=== PATIENT | male | born 1955 | race Caucasian/White ===

== ENCOUNTER → 2023-12-17 14:04 | Outpatient (BNVA) | payer OTHER, SELFPAY | PROVIDERS: Visit Provider Thoracic Surgery (Cardiothoracic Vascular Surgery) | DX: I96 Gangrene, not elsewhere classified (principal); L97.821 Non-pressure chronic ulcer of other part of left lower leg limited to breakdown of skin | CPT/HCPCS: 97597; 97598; 99213 ==

== ENCOUNTER → 2023-12-31 10:48 | Outpatient (BNVA) | payer OTHER, SELFPAY | PROVIDERS: Visit Provider Thoracic Surgery (Cardiothoracic Vascular Surgery) | DX: I96 Gangrene, not elsewhere classified (principal); L97.821 Non-pressure chronic ulcer of other part of left lower leg limited to breakdown of skin | CPT/HCPCS: 97597; 97598 ==

== ENCOUNTER → 2024-01-07 10:36 | Outpatient (BNVA) | payer OTHER, SELFPAY | PROVIDERS: Visit Provider Thoracic Surgery (Cardiothoracic Vascular Surgery) | DX: I96 Gangrene, not elsewhere classified (principal); L97.821 Non-pressure chronic ulcer of other part of left lower leg limited to breakdown of skin | CPT/HCPCS: 97597; 97598 ==

== ENCOUNTER → 2024-01-14 10:28 | Outpatient (BNVA) | payer OTHER, SELFPAY | PROVIDERS: Visit Provider Thoracic Surgery (Cardiothoracic Vascular Surgery) | DX: I96 Gangrene, not elsewhere classified (principal); L97.821 Non-pressure chronic ulcer of other part of left lower leg limited to breakdown of skin | CPT/HCPCS: 97597 ==

== ENCOUNTER → 2024-01-21 07:54 | Outpatient (BNVA) | payer OTHER, SELFPAY | PROVIDERS: Visit Provider Thoracic Surgery (Cardiothoracic Vascular Surgery) | DX: I96 Gangrene, not elsewhere classified (principal); L97.821 Non-pressure chronic ulcer of other part of left lower leg limited to breakdown of skin | CPT/HCPCS: 97597; 97598; A6253 ==

== ENCOUNTER → 2024-01-28 09:42 | Outpatient (BNVA) | payer OTHER, SELFPAY | PROVIDERS: Visit Provider Thoracic Surgery (Cardiothoracic Vascular Surgery) | DX: L97.821 Non-pressure chronic ulcer of other part of left lower leg limited to breakdown of skin (principal) | CPT/HCPCS: 97597; 97598 ==

== ENCOUNTER → 2024-02-11 09:00 | Outpatient (BNVA) | payer OTHER, SELFPAY | PROVIDERS: Visit Provider Thoracic Surgery (Cardiothoracic Vascular Surgery) | DX: L89.893 Pressure ulcer of other site, stage 3 (principal) | CPT/HCPCS: 97597; 97598 ==

== ENCOUNTER 2024-02-18 06:00 | Outpatient (CLI) | payer OTHER, SELFPAY | END 2024-02-18 06:01 | disposition home or self-care (01) | LOC: RAD 02-21 11:49 | PROVIDERS: Visit Provider Thoracic Surgery (Cardiothoracic Vascular Surgery) | DX: S81.802A Unspecified open wound, left lower leg, initial encounter (principal); R52 Pain, unspecified; I50.9 Heart failure, unspecified; I96 Gangrene, not elsewhere classified; L89.893 Pressure ulcer of other site, stage 3 | CPT/HCPCS: 97597; 97598 ==

== ENCOUNTER → 2024-02-25 08:41 | Outpatient (BNVA) | payer OTHER, SELFPAY | PROVIDERS: Visit Provider Thoracic Surgery (Cardiothoracic Vascular Surgery) | DX: I96 Gangrene, not elsewhere classified (principal); L89.893 Pressure ulcer of other site, stage 3 | CPT/HCPCS: 97597; 97598 ==

== ENCOUNTER → 2024-03-03 08:38 | Outpatient (BNVA) | payer OTHER, SELFPAY | PROVIDERS: Visit Provider Thoracic Surgery (Cardiothoracic Vascular Surgery) | DX: Z09 Encounter for follow-up examination after completed treatment for conditions other than malignant neoplasm (principal); Z87.2 Personal history of diseases of the skin and subcutaneous tissue | CPT/HCPCS: 99212 ==

== ENCOUNTER → 2024-03-10 15:45 | Outpatient (BNVA) | payer OTHER, SELFPAY | PROVIDERS: Visit Provider Internal Medicine Cardiovascular Disease | DX: R07.9 Chest pain, unspecified (principal); I25.5 Ischemic cardiomyopathy; I50.9 Heart failure, unspecified | CPT/HCPCS: 99204 ==

== ENCOUNTER 2024-03-13 09:11 | Outpatient (CLI) | payer OTHER, SELFPAY ==
--- NOTE | 2024-03-13 09:15 | USCV_ITS ---
Bijan Paredes Age: 69 Gender: M : 1955 Exam Date: 03/13/2024 09:24 Ordering Phys: Marcos Israel MD (Andy) ([email or web address]) Technologist: CT Exam Location: [facility] – [place] Indication: HISTORY: PROCEDURES: FINDINGS: Duplex examination was performed on the left side. The deep veins on the left side were identified interrogated. These veins were found to be easily compressible with the spontaneous blood flow. No significant insufficiency were noted. The superficial veins were identified and related. Significant insufficiency with venous reflux of greater than 500 ms were noted throughout the greater saphenous vein. The reflux times where 0.7, 0.8, 0.6, 3.9 and 3.6 seconds at the greater saphenous vein distal to saphenofemoral junction, proximal, mid, distal and below-knee segments of the greater saphenous vein respectively. These venous segments were measuring anywhere from 0.5 to 0.8 cm in diameter. Except for the greater saphenous vein distal saphenofemoral junction and the proximal segment of the greater saphenous vein, all other segments were found to be very superficial. No significant venous reflux was noted in the small saphenous vein. CONCLUSIONS 1. No evidence of DVT or deep vein reflux 2. Significant venous reflux of greater than 500 ms were noted throughout the greater saphenous vein segments on the left side. But except for the saphenofemoral greater saphenous vein segments distal to the saphenofemoral junction and proximal greater saphenous vein segment, all other segments were very superficial. 3. The reflux time, venous diameter and depth from the surface are as mentioned above Dr Farideh Lizama MD [facility] (Electronically Signed) Final Date: 14 March 2024 15:11 S
== END 2024-03-13 09:12 | disposition home or self-care (01) ==
LOC: RAD 09:12
PROVIDERS: Visit Provider Thoracic Surgery (Cardiothoracic Vascular Surgery)
DX: I83.812 Varicose veins of left lower extremity with pain (principal); I50.9 Heart failure, unspecified; S81.802A Unspecified open wound, left lower leg, initial encounter; X58.XXXA Exposure to other specified factors, initial encounter
CPT/HCPCS: 93971

== ENCOUNTER 2024-03-31 09:30 | Outpatient (CLI) | payer OTHER, SELFPAY ==
[2024-03-31 09:40] VITALS: BMI 28.5
--- NOTE | 2024-03-31 09:40 | ECG_ITS ---
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
--- NOTE | 2024-03-31 09:41 | NMCV_ITS ---
NM emir perf SPECT r/s* [id number] Bijan Paredes Age: 69 Gender: M : 1955 Exam Date: 03/31/2024 09:41 Ordering Phys: Amando Andrade MD ([email or web address]) Technologist: LEONARDO Joshua Exam Location: [facility] Indications: CP STRESS TEST Please see separate stress test report in [facility] for full findings IMAGE PROTOCOL Rest/Stress 1 Lexiscan Day Radiopharmaceutical Dose (mCi) Administration Site Administered by Rest: Tc-99m 11 IV Sinai Boo, TALENT DEVELOPMENT COORDINATOR Sestamibi Stress:Tc-99m 32.9 IV Sinai Boo, TALENT DEVELOPMENT COORDINATOR Sestamibi Rest: 31-Mar-2024 60 Discovery 630 Stress: 31-Mar-2024 30 Discovery 630 0.4mg Lexiscan. Images obtained in supine and prone position. SPECT RESULTS Technical Quality: Good Raw Data Analysis: Normal Image Corrections: No attenuation or motion correction applied Summed Stress Score: 27 Summed Rest Score: 29 Summed Difference Score: 0 PERFUSION FINDINGS Large area of fixed perfusion defect noted from basal to mid anterior anteroseptal, basal to distal lateral and basal to distal inferior wall on both rest and stress images suggestive of old myocardial infarction versus scarring. No danish-infarct ischemia noted. FUNCTIONAL RESULTS (calculated via Gated SPECT) Stress Image LV EF (%): 47 Stress EDV (mL):150 TID: 0.85 Stress ESV (mL):79 FUNCTIONAL FINDINGS: Moderate depressed left ventricular ejection fraction there appeared to be inferior and lateral wall akinesis IMPRESSIONS Large area of old myocardial infarction versus scarring noted in basal to mid anterior anterolateral, lateral and inferior wall without danish-infarct ischemia. This study is negative for ischemia. EKG segment will be documented separately. Amando Andrade MD (Electronically Signed) Final Date: 31 March 2024 18:33 S
[2024-03-31] MEDS: regadenoson 0.4 Mg/5 ml Syringe IVP (11:14)
[2024-03-31] MEDS: aminophylline 25 mg/mL SDV 20 mL IVP (11:35)
--- NOTE | 2024-03-31 11:46 | ECG_ITS ---
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
[2024-03-31 11:57] VITALS: BP 92/63; PULSE 68
== END 2024-03-31 09:31 | disposition home or self-care (01) ==
PROVIDERS: PCP Family Medicine; Visit Provider Internal Medicine Cardiovascular Disease
DX: I44.0 Atrioventricular block, first degree (principal); I44.7 Left bundle-branch block, unspecified; R07.9 Chest pain, unspecified; R06.02 Shortness of breath
CPT/HCPCS: 36415; 78452; 93005; 93017; 96374; A9500; J0280; J2785

== ENCOUNTER → 2024-04-08 10:34 | Outpatient (BNVA) | payer OTHER, SELFPAY | PROVIDERS: PCP Family Medicine; Visit Provider Specialist | DX: M25.551 Pain in right hip (principal); M25.552 Pain in left hip; M70.61 Trochanteric bursitis, right hip; M70.62 Trochanteric bursitis, left hip | CPT/HCPCS: 73523; 99204 ==

== ENCOUNTER → 2024-04-21 10:00 | Outpatient (BNVA) | payer OTHER, SELFPAY | PROVIDERS: PCP Family Medicine; Visit Provider Nurse Practitioner Family | DX: I48.0 Paroxysmal atrial fibrillation (principal); I25.5 Ischemic cardiomyopathy; I50.9 Heart failure, unspecified; Z95.0 Presence of cardiac pacemaker | CPT/HCPCS: 99214 ==

== ENCOUNTER 2024-06-17 11:50 | Outpatient (CLI) | payer OTHER, SELFPAY ==
--- NOTE | 2024-06-17 11:53 | USCV_ITS ---
Bijan Paredes Age: 69 Gender: M : 1955 Exam Date: 06/17/2024 12:06 Ordering Phys: Amando Andrade MD ([email or web address]) Technologist: CT Exam Location: [facility] – [place] Indication: cp BP: / HR: Rhythm: Sinus Technical Quality: Adequate MEASUREMENTS (Male / Female) Normal Values FINDINGS Left Ventricle Mildly increased left ventricular cavity size. SeverelyGrade I/IV diastolic dysfunction (abnormal relaxation filling pattern), normal to mildly elevated filling pressures. decreased left ventricular systolic function. Left ventricular ejection fraction is estimated at 35 %. Global left ventricular hypokinesis. Right Ventricle Catheter/pacemaker wire visualized in the right ventricle. Right Atrium The right atrium is normal in size. Left Atrium Moderately increased left atrial size. Mitral Valve Mildly thickened mitral valve. No mitral valve stenosis. Mild mitral valve regurgitation. Aortic Valve Moderate aortic valve calcification. No aortic valve stenosis. Trace aortic valve regurgitation. Tricuspid Valve Structurally normal tricuspid valve without significant stenosis or regurgitation. Pulmonary artery systolic pressure is normal. Pulmonic Valve Structurally normal pulmonic valve without significant stenosis. There is no pulmonic regurgitation. Pericardium Normal pericardium without effusion. Aorta Normal ascending aorta dimension. IVC Inferior vena cava not visualized. CONCLUSIONS Mildly increased left ventricular cavity size. SeverelyGrade I/IV diastolic dysfunction (abnormal relaxation filling pattern), normal to mildly elevated filling pressures. decreased left ventricular systolic function. Left ventricular ejection fraction is estimated at 35 %. Global left ventricular hypokinesis. Moderately increased left atrial size. Catheter/pacemaker wire visualized in the right ventricle. There is no pericardial effusion. Amando Andrade MD (Electronically Signed) Final Date: 22 June 2024 03:17 S
[2024-06-17] MEDS: perflutren protein-a microsphr 0.22 mg/mL SDV 3 mL IV (12:50)
== END 2024-06-17 11:51 | disposition home or self-care (01) ==
LOC: RAD 11:51
PROVIDERS: PCP Family Medicine; Visit Provider Nurse Practitioner Family
DX: R06.02 Shortness of breath (principal); R93.1 Abnormal findings on diagnostic imaging of heart and coronary circulation; I51.7 Cardiomegaly; I34.0 Nonrheumatic mitral (valve) insufficiency; I35.8 Other nonrheumatic aortic valve disorders
CPT/HCPCS: C8929

== ENCOUNTER 2024-06-17 13:11 | Emergency (ER) | payer OTHER, MEDICARE, SELFPAY ==
[2024-06-17 13:24] VITALS: BP 116/72; PULSE 61; RESP 16; TEMP 36.3; O2SAT 96; BMI 27.1
--- NOTE | 2024-06-17 13:33 | W.ED.BACK ---
HPI - Back Pain/Injury General: Chief Complaint: Back Pain/Injury Stated Complaint: lower back pain/weakness Time Seen by Provider: 06/17/24 13:31 Source: patient Mode of arrival: ambulatory Limitations: no limitations History of Present Illness: Patient is a 69-year-old male who presents to the emergency department complaining of severe lumbar pain occurring suddenly within the last 24 hours. Notes a history of back surgery where he is currently having pain. Does note that he has been on prednisone chronically since last summer to do some issues with his left lower extremity. He is diabetic also reports a history of neuropathy, states that he has dealt with issues with his left lower extremity with this but he states that with onset of pain his right leg is now been giving out on him. Does not report any fevers, trauma, unexplained weight loss, IVDU, or history of cancer. He does not report any bowel or bladder incontinence. Has not taken anything for pain. Pain reported to radiate across the left lower back and right lower back. MD elicited complaint: back pain Onset (ago): hour(s) Timing: constant Severity: severe Pain scale (0-10): 10 Similar Symptoms Previously: Yes Location: lumbar spine Radiation: right upper leg Exacerbating factors: movement Relieving factors: immobilization Associated symptoms: Reports difficulty walking; Deny abdominal pain, fecal incontinence, fever(s) or syncope Related Data Home Medications Medication Instructions Recorded Confirmed amiodarone 200 mg tablet 200 mg PO DAILY 03/10/24 06/17/24 apixaban 5 mg tablet (Eliquis) 5 mg PO BID 03/10/24 06/17/24 aspirin 81 mg tablet,delayed 81 mg PO DAILY 03/10/24 06/17/24 release (Adult Aspirin Regimen) cholecalciferol (vitamin D3) 25 25 mcg PO DAILY 03/10/24 06/17/24 mcg (1,000 unit) capsule cyanocobalamin (vitamin B-12) 1,000 mcg PO DAILY 03/10/24 06/17/24 1,000 mcg capsule empagliflozin 10 mg tablet 10 mg PO DAILY 03/10/24 06/17/24 fexofenadine 180 mg tablet 180 mg PO DAILY 03/10/24 06/17/24 (Allergy Relief (fexofenadine)) furosemide 80 mg tablet 80 mg PO QAM 03/10/24 06/17/24 gabapentin 600 mg tablet 600 mg PO TID 03/10/24 06/17/24 isosorbide dinitrate 5 mg tablet 5 mg PO BID 03/10/24 06/17/24 metformin 500 mg tablet 2,000 mg PO DAILY 03/10/24 06/17/24 multivitamin 1 tab PO DAILY 03/10/24 06/17/24 omeprazole 20 mg capsule,delayed 20 mg PO QAM 03/10/24 06/17/24 release prednisone 20 mg tablet 20 mg PO DAILY 03/10/24 06/17/24 spironolactone 25 mg tablet 25 mg PO DAILY 03/10/24 06/17/24 vitamin E mixed 1,000 unit capsule 1,000 unit PO DAILY 03/10/24 06/17/24 zolpidem 5 mg tablet (Ambien) 5 mg PO BEDTIME 03/10/24 06/17/24 metoprolol succinate 50 mg 25 mg PO QAM 04/21/24 06/17/24 tablet,extended release 24 hr sacubitril 49 mg-valsartan 51 mg 0.5 tab PO BID 04/21/24 06/17/24 tablet (Entresto) atorvastatin 40 mg tablet 20 mg PO QPM 06/17/24 06/17/24 dofetilide 250 mcg capsule 250 mcg PO Q12H 06/17/24 06/17/24 (Tikosyn) epinephrine 0.3 mg/0.3 mL 0.3 mg IM ONCE PRN Allergic 06/17/24 06/17/24 injection, auto-injector Reaction nitroglycerin 0.4 mg sublingual 0.4 mg sublingual Q5M PRN Chest 06/17/24 06/17/24 tablet (Nitrostat) Pain Previous Rx's Medication Instructions Recorded hydrocodone 5 mg-acetaminophen 325 1 tab PO Q8H PRN pain #14 tabs 06/17/24 mg tablet polyethylene glycol 3350 17 17 g PO DAILY #510 grams 06/17/24 gram/dose oral powder (Miralax) Allergies Allergy/AdvReac Type Severity Reaction Status Date / Time silver nitrate Allergy Unknown Verified 06/17/24 13:29 bee stings Allergy Intermediate ADR-Itching Uncoded 06/17/24 13:29 mercury Allergy Intermediate swelling Uncoded 06/17/24 13:29 Review of Systems General: Reports: 10 or more systems reviewed and unremarkable except in HPI and below Const: Reports: other (denies trauma); Denies: fever(s), change in weight or night sweats Card: Denies: chest pain, lightheadedness or syncope Resp: Denies: dyspnea GI: Denies: abdominal pain or fecal incontinence : Denies: urinary incontinence Musc: Reports: back pain and extremity pain; Denies: neck pain Skin/Breast: Denies: rash or skin pain Neuro: Reports: numbness in extremities, weakness in extremities and difficulty walking; Denies: headache(s), sensory changes, lack of coordination, frequent falls or involuntary movements PFSH ED PFSH: Medical History CHF (congestive heart failure), NYHA class III Ischemic cardiomyopathy Hypertension after donor nephrectomy requiring medication CHF (congestive heart failure) Ischemic cardiomyopathy Social History Smoking and tobacco/nicotine status: former use of tobacco/nicotine Physical Exam Const: COMMON NORMALS: no acute distress, patient oriented x3, no limitations, healthy appearing and alert Resp: COMMON NORMALS: normal respiratory effort, No retractions, No use of accessory muscles and clear to auscultation bilaterally AUSCULTATION: clear to auscultation bilaterally Cardio: COMMON NORMALS: regular rate, regular rhythm, S1 normal heart sound present and S2 normal heart sound present RATE: regular rate RHYTHM: regular rhythm HEART SOUNDS: S1 normal heart sound present and S2 normal heart sound present Back/Pelvis: OTHER: Postoperative scar to lumbar spine. Reproducible tenderness to palpation over the lumbar spine as well as to the bilateral paralumbar muscles. Range of motion limited secondary to pain. SLR positive on the right, RLE weakness endorsed with flexion at the right hip. Reporting diminished sensations to the right lower leg. Extremity: COMMON NORMALS: normal to inspection and full ROM Neuro: COMMON NORMALS: patient oriented x3, moves all extremities, no focal motor deficits and deep tendon reflexes 2+ bilaterally SENSORIUM/ORIENTATION: Yes alert OTHER: Cane required for gait assistance. L3, L4, L5, and S1 nerve sensations intact. Normal knee jerk and ankle jerk reflexes. Skin: COMMON NORMALS: no rashes or lesions noted GENERAL SKIN EXAM: no rashes or lesions noted Course Vital Signs: Vital signs: Vital Signs Temperature 97.4 F L 06/17/24 13:24 Pulse Rate 60 06/17/24 14:18 Respiratory Rate 16 06/17/24 13:24 Blood Pressure 120/75 06/17/24 14:18 Pulse Oximetry 97 06/17/24 14:18 Oxygen Delivery Me thod Room Air 06/17/24 14:18 MDM - Back Pain/Injury Medical Decision Making Patient has history of lumbar surgery, presented with lumbar spinal pain radiating across left and right back. There was some numbness sensation endorsed on the right lower extremity and straight leg raise testing positive on the right. Reproducible tenderness to palpation to the back as well. CT showing mild acute compression fracture and chronic stenosis with decompressive findings. I got in touch with Dr. Crouch, who will see the patient in office and we will treat patient's pain at home with Julianne. Discussed plan with patient, upon recheck he was sleeping comfortably stating his pain got much better. Serial neurological examination did not demonstrate any acute worsening. He will follow-up as planned with general return precautions given. Labs Radiology Impressions Lumbar Spine CT 06/17/24 13:50 IMPRESSION: 1. Mild acute compression RIGHT superior endplate L4 with minimal loss of vertebral body height approximate 20%. No retropulsion. Fracture through the anterior bridging osteophytes at this level. Fracture has an acute appearance. 2. Severe central canal stenosis L2-3 due to disc bulge with facet arthropathy and ligamentum flavum hypertrophy. 3. Spinal canal has been decompressed at L3-L5 with wide decompressive laminectomies L3-L4 and L4-L5. 4. Disc osteophyte protrusion L5-S1 impinges the traversing RIGHT S1 nerve root in the subarticular recess. 5. Mild fusiform abdominal aortic aneurysm measuring 3.1 x 2.7 x 8.7 cm AP by transverse by craniocaudal. No prior comparisons. This could be followed up with CTA or ultrasound on an elective basis Notified Dr Tian at 06/17/2024 2:50 PM. All radiology interpretation(s) finalized by discharge Discharge Plan Discharge Patient Disposition: Home Clinical Impression: Compression fracture of L3 vertebra Qualifiers: Encounter type: initial encounter Qualified Code(s): S32.030A - Wedge compression fracture of third lumbar vertebra, initial encounter for closed fracture Spinal stenosis Qualifiers: Spinal region: lumbar Neurogenic claudication status: unspecified Qualified Code(s): M48.061 - Spinal stenosis, lumbar region without neurogenic claudication Condition: Stable Prescriptions: New hydrocodone-acetaminophen 5-325 mg tablet 1 tab PO Q8H PRN (Reason: pain) Qty: 14 0RF Rx Instructions: Take 1/2 to 1 tab every 8 hours as needed for pain polyethylene glycol 3350 [Miralax] 17 gram/dose powder 17 g PO DAILY Qty: 510 0RF Rx Instructions: Take 1 scoop daily while taking pain medications. No Action Entresto 49-51 mg tablet 0.5 tab PO BID metoprolol succinate 50 mg tablet extended release 24 hr 25 mg PO QAM empagliflozin 10 mg tablet 10 mg PO DAILY omeprazole 20 mg capsule,delayed release(DR/EC) 20 mg PO QAM prednisone 20 mg tablet 20 mg PO DAILY metformin 500 mg tablet 2,000 mg PO DAILY aspirin [Adult Aspirin Regimen] 81 mg tablet,delayed release (DR/EC) 81 mg PO DAILY cholecalciferol (vitamin D3) 25 mcg (1,000 unit) capsule 25 mcg PO DAILY cyanocobalamin (vitamin B-12) 1,000 mcg capsule 1,000 mcg PO DAILY fexofenadine [Allergy Relief (fexofenadine)] 180 mg tablet 180 mg PO DAILY furosemide 80 mg tablet 80 mg PO QAM gabapentin 600 mg tablet 600 mg PO TID multivitamin Tablet 1 tab PO DAILY spironolactone 25 mg tablet 25 mg PO DAILY isosorbide dinitrate 5 mg tablet 5 mg PO BID Rx Instructions: allow nitrate-free interval of 12-14 hrs per 24-hr period amiodarone 200 mg tablet 200 mg PO DAILY Eliquis 5 mg tablet 5 mg PO BID vitamin E mixed 1,000 unit capsule 1,000 unit PO DAILY zolpidem [Ambien] 5 mg tablet 5 mg PO BEDTIME atorvastatin 40 mg Tablet 20 mg PO QPM dofetilide [Tikosyn] 250 mcg Capsule 250 mcg PO Q12H nitroglycerin [Nitrostat] 0.4 mg Tablet, Sublingual 0.4 mg SUBLINGUAL Q5M PRN (Reason: Chest Pain) Rx Instructions: do not exceed 3 doses per episode epinephrine [Epi E-Z Pen] 0.3 mg/0.3 mL Auto-Injector 0.3 mg IM ONCE PRN (Reason: Allergic Reaction) Rx Instructions: for 2 doses Discharge Orders: Discharge ED (Routine); Ordered 06/17/24 Ordered By: Jeffrey Gagnon Referrals: Andrew Crouch DO [Physician] - 7-10 days (Please call for an appointment with orthopedics or with your primary if pain persists.) Manasa Paul MD [Primary Care Provider] - Patient Instructions: Vertebral Compression Fracture (ED), Lumbar Spinal Stenosis (ED) Activity Restrictions/Additional Instructions: Pain medications as prescribed. Follow-up with orthopedic/spine as discussed. Return with any new or worsening. Please see attached patient instructions for further education. Coding Level of Care Code ED Leather Belt Maker for July Issa
--- NOTE | 2024-06-17 13:50 | CT_ITS ---
WS: [id number] CT LUMBAR SPINE TECHNIQUE: Noncontrast CT of the lumbar spine with coronal and sagittal reformatted images. CLINICAL INFORMATION: severe low back pain, difficulty walking, hx of lumbar surge COMPARISON: None. DLP: 801.[address] scans at [facility] use at least one of these dose optimization techniques: automated e xposure control; mA and/or kV adjustment per patient size (includes targeted exams where dose is matc hed to clinical indication); or iterative reconstruction. FINDINGS: Mild lumbar curve. No acute compression. Prior postoperative changes laminectomy L3-L4 and L4-L5. Sli ght anterolisthesis L3 on L4. Ectatic mild fusiform dilatation infrarenal abdominal aorta measuring 3.1 x 2.7 x 8.4 cm AP by transv erse by craniocaudal Mild acute appearing compression superior endplate L4 with visualized fracture cleft and mild danae lesa. Fracture through the anterior bridging osteophyte. Minimal approximate 20% loss of vertebral jerrod dy height. No significant retropulsion. This has an acute appearance. L1-L2: Slight narrowing LEFT subarticular recess. Mild facet arthropathy. L2-L3: Mild annular bulging. Small central protrusion. Chronic appearing severe central canal stenosi s with facet arthropathy and ligamentum flavum hypertrophy. Moderate bilateral foraminal narrowing. L3-L4: Grade 1 anterolisthesis. Mild annular bulging. Prior laminectomy defects. Moderate bilateral f oraminal narrowing. L4-L5: Mild annular bulging. Laminectomy defects. Moderate facet arthropathy. Mild bilateral foramina l narrowing. L5-S1: RIGHT paracentral disc osteophyte protrusion impinges the RIGHT S1 nerve root. Mild central ca nal stenosis. Mild facet arthropathy. Mild LEFT foraminal narrowing. Visualized pelvic bony structures: Normal. Paravertebral soft tissues: Normal. Adrenal glands are normal. Small bilateral renal cysts. LEFT basilar atelectasis. CT/CT lumbar spine wo con* [id number] IMPRESSION: 1. Mild acute compression RIGHT superior endplate L4 with minimal loss of vert ebral body height approximate 20%. No retropulsion. Fracture through the anteri or bridging osteophytes at this level. Fracture has an acute appearance. 2. Severe central canal stenosis L2-3 due to disc bulge with facet arthropathy and ligamentum flavum hypertrophy. 3. Spinal canal has been decompressed at L3-L5 with wide decompressive laminec tomies L3-L4 and L4-L5. 4. Disc osteophyte protrusion L5-S1 impinges the traversing RIGHT S1 nerve june t in the subarticular recess. 5. Mild fusiform abdominal aortic aneurysm measuring 3.1 x 2.7 x 8.7 cm AP by transverse by craniocaudal. No prior comparisons. This could be followed up wit h CTA or ultrasound on an elective basis Notified Dr Tian at 06/17/2024 2:50 PM.
[2024-06-17] MEDS: ketorolac 60 mg/2 mL INJ IM (14:14)
[2024-06-17] MEDS: orphenadrine 30 mg/mL Inj 2 mL 60 MG IM (14:16)
[2024-06-17 14:18] VITALS: BP 120/75; PULSE 60; O2SAT 97
--- NOTE | 2024-06-17 14:35 | PC.PHAR ---
Pt has 5 medications not on his [facility] med list yet: Amiodarone 200mg daily, Metformin 500mg 2000mg daily, Prednisone 20mg,Vitamin e 1000 daily, and Zolpidem 5 mg hs.
[2024-06-17 15:24] VITALS: BP 112/68; PULSE 61; O2SAT 97
--- NOTE | 2024-06-19 00:04 | DCPLANNER ---
Message sent to Ortho /Spine Dr Crouch
== END 2024-06-17 15:26 | disposition home or self-care (01) ==
PROVIDERS: Emergency Provider Physician Assistant; PCP Family Medicine
DX: S32.030A Wedge compression fracture of third lumbar vertebra, initial encounter for closed fracture (principal); M48.061 Spinal stenosis, lumbar region without neurogenic claudication; Z79.84 Long term (current) use of oral hypoglycemic drugs; Z79.82 Long term (current) use of aspirin; Z79.01 Long term (current) use of anticoagulants; Z87.891 Personal history of nicotine dependence; I11.0 Hypertensive heart disease with heart failure; I50.9 Heart failure, unspecified; X58.XXXA Exposure to other specified factors, initial encounter
CPT/HCPCS: 72131; 96372; 99284; J1885; J2360

== ENCOUNTER → 2024-07-02 15:00 | Outpatient (BNVA) | payer OTHER, SELFPAY | PROVIDERS: PCP Family Medicine; Visit Provider Orthopaedic Surgery | DX: S32.040A Wedge compression fracture of fourth lumbar vertebra, initial encounter for closed fracture (principal); X58.XXXA Exposure to other specified factors, initial encounter | CPT/HCPCS: 36415; 72100; 80053; 81001; 85025; 99204 ==

== ENCOUNTER → 2024-07-17 09:21 | Outpatient (BNVA) | payer OTHER, SELFPAY | PROVIDERS: PCP Family Medicine; Visit Provider Internal Medicine | DX: Z01.818 Encounter for other preprocedural examination (principal); I25.5 Ischemic cardiomyopathy | CPT/HCPCS: 99214 ==

== ENCOUNTER 2024-07-29 07:00 | Day surgery (SDC) | payer OTHER, SELFPAY ==
[2024-07-29] VITALS (10 sets, daily range): BP systolic 130–159; BP diastolic 78–99; PULSE 70–95; RESP 16–18; TEMP 36.1–36.7; O2SAT 92–98; BMI 27.1
--- NOTE | 2024-07-29 07:03 | SC_ITS ---
WS: [id number] C ARM fluoroscopy for lumbar kyphoplasty, 07/29/2024 Clinical Data: Surgery Comparison: Lumbar spine, 07/02/2024 Findings: Dr. Crouch performed a lumbar kyphoplasty on L4. SC/C-arm FL for Kyphoplasty Impression: Lumbar kyphoplasty.
[2024-07-29] MEDS: sodium chloride 0.9% 1,000 ML 30 ML IV (07:34)
[2024-07-29 07:36] LABS: Glucose Point of Care 97 mg/dL (70-110)
--- NOTE | 2024-07-29 07:38 | ANES.PREANE2 ---
Pre-Anesthetic Assessment Height/Weight: Height 1.83 m Weight 90.718 kg Temp Pulse Resp BP Pulse Ox O2 Del Method 98.1 F 95 18 133/99 96 Room Air 07/29/24 07:19 07/29/24 07:19 07/29/24 07:19 07/29/24 07:19 07/29/24 07:19 07/29/24 07:19 Preop Diagnosis: L4 traumatic osteoporotic wedge compression fracture Operation Date: 07/29/24 08:25 Proposed Procedures p Kyphoplasty(Not Applicable) - Andrew Crouch DO Familial anesthetic complications: None Was Beta Ricardo taken within 24 hours: Yes Was Clonidine taken within 24 hours: N/A Last intake: Intake Last Liquid Date 07/28/24 Last Liquid Time 23:30 Last Solid Date 07/28/24 Last Solid Time 18:00 Social No alcohol and No tobacco Exam alert, oriented x 3, clear to auscultation bilaterally and regular rate & rhythm Airway Mallampati: Class II Dentition: false CV/HEM Atrial Fibrillation, Coronary Artery Disease (stent), Congestive Heart Failure (Grade I diastolic dysfunction w/ EF of 35% and global hypokinesis) and Hypertension pacemaker w/ ICD (AAI mode) Ischemic cardiomyopathy Anesthetic Plan ASA status: 4 Anesthesia: General Risk of > 500 ml blood loss (7ml/kg in children): No Medications/Allergies Home Medications ?Medication ?Instructions ?Recorded ?Confirmed ?Last Taken ?Type amiodarone 200 mg tablet 200 mg PO DAILY 03/10/24 07/29/24 07/29/24 History apixaban 5 mg tablet (Eliquis) 5 mg PO BID 03/10/24 07/28/24 07/27/24 History aspirin 81 mg tablet,delayed 81 mg PO DAILY 03/10/24 07/28/24 07/27/24 History release (Adult Aspirin Regimen) cholecalciferol (vitamin D3) 25 25 mcg PO DAILY 03/10/24 07/28/24 07/27/24 History mcg (1,000 unit) capsule cyanocobalamin (vitamin B-12) 1,000 mcg PO DAILY 03/10/24 07/28/24 07/28/24 History 1,000 mcg capsule empagliflozin 10 mg tablet 10 mg PO DAILY 03/10/24 07/28/24 07/27/24 History (Jardiance) fexofenadine 180 mg tablet 180 mg PO DAILY 03/10/24 07/28/24 07/27/24 History (Allergy Relief (fexofenadine)) furosemide 80 mg tablet 80 mg PO QAM 03/10/24 07/28/24 07/27/24 History gabapentin 600 mg tablet 600 mg PO TID 03/10/24 07/28/24 07/27/24 History isosorbide dinitrate 5 mg tablet 5 mg PO BID 03/10/24 07/28/24 07/27/24 History metformin 500 mg tablet 2,000 mg PO DAILY 03/10/24 07/28/24 07/27/24 History multivitamin 1 tab PO DAILY 03/10/24 07/28/24 07/27/24 History omeprazole 20 mg capsule,delayed 20 mg PO QAM 03/10/24 07/29/24 07/29/24 History release prednisone 20 mg tablet 20 mg PO DAILY 03/10/24 07/28/24 07/27/24 History spironolactone 25 mg tablet 25 mg PO DAILY 03/10/24 07/28/24 07/28/24 History vitamin E mixed 1,000 unit capsule 1,000 unit PO DAILY 03/10/24 07/28/24 07/27/24 History zolpidem 5 mg tablet (Ambien) 5 mg PO BEDTIME 03/10/24 07/28/24 07/27/24 History metoprolol succinate 50 mg 25 mg PO QAM 04/21/24 07/29/24 07/29/24 History tablet,extended release 24 hr sacubitril 49 mg-valsartan 51 mg 0.5 tab PO BID 04/21/24 07/28/24 07/27/24 History tablet (Entresto) atorvastatin 40 mg tablet 20 mg PO QPM 06/17/24 07/28/24 07/27/24 History epinephrine 0.3 mg/0.3 mL 0.3 mg IM ONCE PRN Allergic 06/17/24 07/28/24 Unknown History injection, auto-injector Reaction nitroglycerin 0.4 mg sublingual 0.4 mg sublingual Q5M PRN Chest 06/17/24 07/28/24 Unknown History tablet (Nitrostat) Pain polyethylene glycol 3350 17 17 g PO DAILY #510 grams 0107/28/24 07/28/24 Rx gram/dose oral powder (Miralax) oxycodone 10 mg tablet 10 mg PO Q8H PRN pain 7 days #21 07/20/24 07/29/24 07/29/24 Rx tabs Allergies Allergy/AdvReac Type Severity Reaction Status Date / Time Alpha-Gal Allergy ALGY-Difficulty Verified 07/29/24 07:08 (Rukqvcjuw-Ifdav-0,3-Gala Breathing silver nitrate Allergy Unknown Verified 07/29/24 07:08 bee stings Allergy Intermediate ADR-Itching Uncoded 07/29/24 07:08 mercury Allergy Intermediate swelling Uncoded 07/29/24 07:08 Current Medications Generic Name Dose Route Start Last Admin Trade Name Freq PRN Reason Stop Dose Admin Sodium Chloride 1,000 mls @ 30 mls/hr 07/29/24 07:30 07/29/24 07:34 Sodium Chloride 0.9% IV 07/30/24 07:29 30 mls/hr .Q24H SHRUTHI Administration PFSH Anesthesia Medical History CHF (congestive heart failure), NYHA class III Ischemic cardiomyopathy Hypertension 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
[2024-07-29 07:56] LABS: Anion Gap 13.7 (5-19); Blood Urea Nitrogen 16 mg/dL (8-23); Calcium 9.5 mg/dL (8.5-10.5); Carbon Dioxide 27 mmol/L (22-29); Chloride 103 mmol/L (98-107); Creatinine Clr Calc Pharmacy 89.4954; Glomerular Filtration Rate 83.4 mL/min (90-130); Glucose 115 mg/dL (65-115); Osmolality Calculated 292 mOsm/kg (285-295); Potassium 3.7 mmol/L (3.5-5.1); Sodium 140 mmol/L (136-145)
[2024-07-29] MEDS: ceFAZolin 2,000 mg SDV 2000 MG IVP (08:39)
--- NOTE | 2024-07-29 08:46 | W.PM.OPSUD ---
Surgery/Procedure H&P Update DATE OF PROCEDURE: July 29, 2024 DATE H&P PERFORMED: 07/02/24 H&P UPDATE INFORMATION: I have reviewed H&P completed within last 30 days, I have examined patient prior to procedure and No changes to prior documentation PREOP DIAGNOSIS: L4 traumatic osteoporotic wedge compression fracture PLANNED PROCEDURE: Operation Date: 07/29/24 08:25 Proposed Procedures p Kyphoplasty(Not Applicable) - Andrew Crouch DO
[2024-07-29] MEDS: lidocaine-epi 1% 20 mL INJ INJECTION (09:30)
--- NOTE | 2024-07-29 09:50 | PM.OP ---
Operative Report Date of procedure: July 29, 2024 Pre-op diagnosis: L4 wedge osteoporotic traumatic compression fracture Post-op diagnosis: same Procedure done: L4 kyphoplasty Surgeon: Andrew Crouch DO Estimated blood loss (mL): 5 Procedure: L4 kyphoplasty Patient brought to the operative suite after an Gonasi was placed in the prone position. All his impingement well-padded. Patient's prepped and draped normal sterile fashion. C-arm was brought in to get AP and lateral fluoroscopy biplanar fluoroscopy throughout the entire procedure. The skin incisions made over the right pedicle. The awl was inserted. The drill was inserted when the drill came back and had bone fragments on it and sent these for pathology. Next attension was brought to placing the balloon. The balloon was inflated and then deflated under C-arm guidance. Next the cement was injected. Had a good fill throughout the entire vertebral body. AP lateral fluoroscopy confirmed this. Wound was irrigated closed with nylon suture. Sterile dressings were applied patient transferred to the PACU in stable condition.
[2024-07-29] MEDS: oxyCODONE 5 mg IR Tab/Cap 10 MG PO (10:52)
--- NOTE | 2024-07-29 11:15 | ANE.PACU2 ---
Inpatient post-anesthesia follow up: Airway intact: Yes Vital signs: Temperature 97.1 F Pulse Rate 73 Respiratory Rate 16 Blood Pressure 135/79 Pulse Oximetry 92 Oxygen Delivery Me thod Room Air Oxygen Flow Rate Fraction of Inspir ed Oxygen Hydration adequate: Yes Pain level: 1 Mental status: Baseline
== END 2024-07-29 11:17 | disposition home or self-care (01) ==
PROVIDERS: Anesthesiology; PCP Family Medicine; Visit Provider Orthopaedic Surgery
PROC: (CPT 22514; principal; 2024-07-29 08:25)
DX: M80.08XA Age-related osteoporosis with current pathological fracture, vertebra(e), initial encounter for fracture (principal); I48.91 Unspecified atrial fibrillation; I25.10 Atherosclerotic heart disease of native coronary artery without angina pectoris; I11.0 Hypertensive heart disease with heart failure; I50.32 Chronic diastolic (congestive) heart failure; X58.XXXA Exposure to other specified factors, initial encounter; Z79.899 Other long term (current) drug therapy; Z79.01 Long term (current) use of anticoagulants; Z79.84 Long term (current) use of oral hypoglycemic drugs; Z79.82 Long term (current) use of aspirin; Z88.8 Allergy status to other drugs, medicaments and biological substances; Z87.891 Personal history of nicotine dependence; Z95.5 Presence of coronary angioplasty implant and graft; Z95.0 Presence of cardiac pacemaker; Z52.4 Kidney donor
CPT/HCPCS: 22514; 36415; 36416; 76000; 80048; 82962; 88307; 88311; J0690; J1100; J2405; J2704; J3010; J3490; J7030

== ENCOUNTER → 2024-08-13 14:28 | Outpatient (BNVA) | payer OTHER, SELFPAY | PROVIDERS: PCP Family Medicine; Visit Provider Orthopaedic Surgery | DX: M54.9 Dorsalgia, unspecified (principal); M25.559 Pain in unspecified hip; Z48.89 Encounter for other specified surgical aftercare | CPT/HCPCS: 99024 ==

== ENCOUNTER 2024-08-18 05:00 | Outpatient (RCR) | payer OTHER, SELFPAY | END 2024-09-16 23:59 | disposition home or self-care (01) | LOC: TPT 05:00 | PROVIDERS: Visit Provider Orthopaedic Surgery | DX: M54.9 Dorsalgia, unspecified (principal); M25.559 Pain in unspecified hip | CPT/HCPCS: 97110; 97116; 97161 ==

== ENCOUNTER 2024-09-17 05:00 | Outpatient (RCR) | payer OTHER, MEDICARE, SELFPAY | END 2024-10-17 23:59 | disposition home or self-care (01) | LOC: TPT 05:00 | PROVIDERS: PCP Nurse Practitioner Family; Visit Provider Orthopaedic Surgery | DX: M54.9 Dorsalgia, unspecified (principal); M25.559 Pain in unspecified hip | CPT/HCPCS: 97110; 97116 ==

== ENCOUNTER 2024-10-05 10:56 | Emergency (ER) | payer OTHER, MEDICARE, SELFPAY ==
--- NOTE | 2024-10-05 11:11 | USCV_ITS ---
Bijan Paredes Age: 69 Gender: M : 1955 Exam Date: 10/05/2024 11:32 Ordering Phys: Nirmala Newman MD Technologist: [employer] Exam Location: [facility] [place]_ Indication: left leg pain HISTORY: left lower extremity pain PROCEDURES: Venous duplex imaging was performed in only the left lower extremity. The following venous structures were evaluated: common femoral vein, profunda vein, proximal portion of the greater saphenous vein, superficial femoral vein, and the popliteal vein. In addition, the posterior tibial and peroneal trunk were evaluated. FINDINGS: No evidence of DVT seen in any vessel visualized at this time. There are enlarged lymph nodes noted in the left groin. CONCLUSIONS No evidence of left lower extremity DVT. Non specific enlarged lymph nodes LEFT groin measuring up to 3.5cm may be reactive Jeff Diaz MD (Electronically Signed) Final Date: 05 Oct 2024 14:03 S
[2024-10-05 11:58] VITALS: BP 131/69; PULSE 70; TEMP 36.5; O2SAT 96; BMI 24.4
--- NOTE | 2024-10-05 14:51 | XRR_ITS ---
PROCEDURE INFORMATION: Exam: XR Left Tibia and Fibula Exam date and time: 10/05/2024 2:54 PM Age: 69 years old Clinical indication: Other: Wound; Additional info: Leg wound TECHNIQUE: Imaging protocol: Radiologic exam of the left tibia and fibula. Views: 2 views. COMPARISON: No relevant prior studies available. FINDINGS: Bones/joints: No acute fracture or dislocation. Two screws are visualized within the medial malleolus. Periosteal reaction along the lateral aspect of the proximal fibular shaft. Soft tissues: Diffuse subcutaneous edema, more pronounced in the proximal to mid lower leg. Other findings: Scattered vascular calcifications in the proximal lower leg. XR/XR tibia fibula LT 2V [id number] IMPRESSION: 1. No acute osseous findings. 2. Periosteal reaction along the proximal fibular shaft may be from prior trauma or infection, including possibility of chronic osteomyelitis. Tumor also not entirely excluded. This could be further assessed with MRI if warranted. 3. Diffuse subcutaneous edema in the proximal to mid lower leg.
--- NOTE | 2024-10-05 14:54 | W.ED.WOUNDLC ---
HPI - Wound/Laceration General: Chief Complaint: Wound/Laceration Stated Complaint: Jm Duenas leg pain and swelling Time Seen by Provider: 10/05/24 14:09 Source: patient Mode of arrival: ambulatory Limitations: no limitations History of Present Illness: 69-year-old male states he had a chronic wound to his left lower leg he states he seen wound care in the past had been on antibiotics multiple times but it returns he states wound is increased and has had some foul smell from it along with drainage. Said slight pain denies any fevers. Denies any worse improved factors currently not on any antibiotics. Associated symptoms: Denies chills, fever(s), nausea or vomiting Related Data Home Medications ?Medication ?Instructions ?Recorded ?Confirmed amiodarone 200 mg tablet 200 mg PO DAILY 03/10/24 10/05/24 apixaban 5 mg tablet (Eliquis) 5 mg PO BID 03/10/24 10/05/24 aspirin 81 mg tablet,delayed 81 mg PO DAILY 03/10/24 10/05/24 release (Adult Aspirin Regimen) cholecalciferol (vitamin D3) 25 25 mcg PO DAILY 03/10/24 10/05/24 mcg (1,000 unit) capsule cyanocobalamin (vitamin B-12) 1,000 mcg PO DAILY 03/10/24 10/05/24 1,000 mcg capsule empagliflozin 10 mg tablet 10 mg PO DAILY 03/10/24 10/05/24 (Jardiance) fexofenadine 180 mg tablet 180 mg PO DAILY 03/10/24 10/05/24 (Allergy Relief (fexofenadine)) furosemide 80 mg tablet 80 mg PO QAM 03/10/24 10/05/24 gabapentin 600 mg tablet 600 mg PO TID 03/10/24 10/05/24 multivitamin 1 tab PO DAILY 03/10/24 10/05/24 omeprazole 20 mg capsule,delayed 20 mg PO QAM 03/10/24 10/05/24 release spironolactone 25 mg tablet 25 mg PO DAILY 03/10/24 10/05/24 metoprolol succinate 50 mg 25 mg PO QAM 04/21/24 10/05/24 tablet,extended release 24 hr sacubitril 49 mg-valsartan 51 mg 0.5 tab PO BID 04/21/24 10/05/24 tablet (Entresto) epinephrine 0.3 mg/0.3 mL 0.3 mg IM ONCE PRN Allergic 06/17/24 10/05/24 injection, auto-injector Reaction nitroglycerin 0.4 mg sublingual 0.4 mg sublingual Q5M PRN Chest 06/17/24 10/05/24 tablet (Nitrostat) Pain dofetilide 250 mcg capsule 250 mcg PO Q12H 10/05/24 10/05/24 (Tikosyn) isosorbide dinitrate 10 mg tablet 10 mg PO BID 10/05/24 10/05/24 Previous Rx's ?Medication ?Instructions ?Recorded oxycodone 10 mg tablet 10 mg PO Q4H PRN pain 7 days #42 09/22/24 tabs clindamycin HCl 300 mg capsule 300 mg PO Q8H 7 days #21 caps 10/05/24 (Cleocin HCl) Allergies Allergy/AdvReac Type Severity Reaction Status Date / Time Alpha-Gal Allergy ALGY-Difficulty Verified 10/05/24 12:04 (Xsvqxxjel-Nslbd-1,3-Gala Breathing silver nitrate Allergy Unknown Verified 10/05/24 12:04 bee stings Allergy Intermediate ADR-Itching Uncoded 10/05/24 12:04 mercury Allergy Intermediate swelling Uncoded 10/05/24 12:04 Review of Systems Const: Denies: fever(s), chills, body aches or change in appetite ENMT: Denies: throat pain or dental pain Card: Denies: chest pain Resp: Denies: dyspnea GI: Denies: abdominal pain, nausea, vomiting or diarrhea Musc: Denies: neck pain or back pain Skin/Breast: Denies: rash Neuro: Denies: headache(s) PFS ED PFSH: Medical History CHF (congestive heart failure), NYHA class III Ischemic cardiomyopathy Hypertension after donor nephrectomy requiring medication CHF (congestive heart failure) Ischemic cardiomyopathy Social History Smoking and tobacco/nicotine status: former use of tobacco/nicotine Physical Exam Const: COMMON NORMALS: no acute distress, patient oriented x3 and healthy appearing HENMT: COMMON NORMALS: normocephalic and atraumatic HEAD & SCALP: normocephalic and atraumatic Neck/C-Spine: COMMON NORMALS: full ROM and supple Chest: COMMONS NORMALS: normal inspection of the chest Resp: COMMON NORMALS: normal respiratory effort Extremity: NARRATIVE EXTREMITY EXAM: Wound noted to left lateral leg does have a foul smell slight erythema around it as well Neuro: COMMON NORMALS: patient oriented x3, moves all extremities and no focal motor deficits Psych: COMMON NORMALS: mental status grossly normal, Normal thought process present and cooperative THOUGHT PROCESS: Normal thought process present Skin: COMMON NORMALS: no rashes or lesions noted and no wounds GENERAL SKIN EXAM: no rashes or lesions noted Course Vital Signs: Vital signs: Vital Signs Temperature 97.7 F 10/05/24 11:58 Pulse Rate 71 10/05/24 15:54 Respiratory Rate 18 10/05/24 15:54 Blood Pressure 135/79 10/05/24 15:54 Pulse Oximetry 99 10/05/24 15:54 Oxygen Delivery Me thod Room Air 10/05/24 15:54 MDM - Wound/Laceration Medical Decision Making Patient presents here with leg wounds chronic in nature inflammatory markers are normal we will start him on clindamycin we will get him follow-up with wound care he is return if worsening he understands agrees to plan no signs of necrotizing fasciitis Medical Records I reviewed the patient's medical records. Lab Data I reviewed the patient's lab results. 10/05/24 15:20 10/05/24 15:20 Radiology Impressions Tibia/Fibula X-Ray 10/05/24 14:51 IMPRESSION: 1. No acute osseous findings. 2. Periosteal reaction along the proximal fibular shaft may be from prior trauma or infection, including possibility of chronic osteomyelitis. Tumor also not entirely excluded. This could be further assessed with MRI if warranted. 3. Diffuse subcutaneous edema in the proximal to mid lower leg. Laboratory Results WBC 7.19 10^3/uL (3.29-11.43) 10/05/24 15:20 RBC 4.08 10^6/uL (3.85-5.65) 10/05/24 15:20 Hgb 12.10 g/dL (11.27-16.99) 10/05/24 15:20 Hct 39.8 % (37-53) 10/05/24 15:20 MCV 97.5 fl (82-101) 10/05/24 15:20 MCH 29.7 pg (27-33) 10/05/24 15:20 MCHC 30.4 g/dL (30-55) 10/05/24 15:20 RDW 14.5 % (12.1-15.1) 10/05/24 15:20 Plt Count 204 10^3/cmm (157-399) 10/05/24 15:20 MPV 9.9 fL (7.4-10.4) 10/05/24 15:20 Neut % (Auto) 55.9 % 10/05/24 15:20 Lymph % (Auto) 23.1 % 10/05/24 15:20 [place] % (Auto) 9.3 % 10/05/24 15:20 Eos % (Auto) 10.8 % 10/05/24 15:20 Baso % (Auto) 0.6 % 10/05/24 15:20 Neut # (Auto) 4.02 10^3/uL (1.8-7.7) 10/05/24 15:20 Lymph # (Auto) 1.7 10^3/uL (0.8-4.8) 10/05/24 15:20 [place] # (Auto) 0.7 10^3/uL (0.2-0.9) 10/05/24 15:20 Eos # (Auto) 0.8 10^3/uL (0.0-0.8) 10/05/24 15:20 Baso # (Auto) 0.0 10^3/uL (0.0-0.1) 10/05/24 15:20 Nucleated RBC % (auto) 0 % 10/05/24 15:20 Nucleated RBCs # 0.0 /100WBC 10/05/24 15:20 ESR 16 mm/hr (0-10) H 10/05/24 15:20 Sodium 138 mmol/L (136-145) 10/05/24 15:20 Potassium 4.1 mmol/L (3.5-5.1) 10/05/24 15:20 Chloride 103 mmol/L (98-107) 10/05/24 15:20 Carbon Dioxide 24 mmol/L (22-29) 10/05/24 15:20 Anion Gap 15.1 (5-19) 10/05/24 15:20 BUN 9 mg/dL (8-23) 10/05/24 15:20 Creatinine 0.9 mg/dL (0.7-1.2) 10/05/24 15:20 GFR Calculation 83.4 mL/min (90-130) L 10/05/24 15:20 Glucose 81 mg/dL (65-115) 10/05/24 15:20 Calculated Osmolality 284 mOsm/kg (285-295) L 10/05/24 15:20 Calcium 9.5 mg/dL (8.5-10.5) 10/05/24 15:20 Total Bilirubin 1.1 mg/dL (0.15-1.2) 10/05/24 15:20 AST 14 U/L (0-40) 10/05/24 15:20 ALT 8 U/L (0-41) 10/05/24 15:20 Alkaline Phosphatase 132 U/L (40-130) H 10/05/24 15:20 C-Reactive Protein 22.7 mg/L (0.0-4.9) H 10/05/24 15:20 Total Protein 7.0 g/dL (6.6-8.7) 10/05/24 15:20 Albumin 3.7 g/dL (3.5-5.2) 10/05/24 15:20 Globulin 3.3 g/dL (1.3-4.6) 10/05/24 15:20 All radiology interpretation(s) finalized by discharge Discharge Plan Discharge Patient Disposition: Home Clinical Impression: Leg wound, left Condition: Stable Prescriptions: New clindamycin HCl [Cleocin HCl] 300 mg capsule 300 mg PO Q8H 7 Days Qty: 21 0RF No Action Entresto 49-51 mg tablet 0.5 tab PO BID metoprolol succinate 50 mg tablet extended release 24 hr 25 mg PO QAM Jardiance 10 mg tablet 10 mg PO DAILY omeprazole 20 mg capsule,delayed release(DR/EC) 20 mg PO QAM aspirin [Adult Aspirin Regimen] 81 mg tablet,delayed release (DR/EC) 81 mg PO DAILY cholecalciferol (vitamin D3) 25 mcg (1,000 unit) capsule 25 mcg PO DAILY cyanocobalamin (vitamin B-12) 1,000 mcg capsule 1,000 mcg PO DAILY fexofenadine [Allergy Relief (fexofenadine)] 180 mg tablet 180 mg PO DAILY furosemide 80 mg tablet 80 mg PO QAM gabapentin 600 mg tablet 600 mg PO TID multivitamin Tablet 1 tab PO DAILY spironolactone 25 mg tablet 25 mg PO DAILY amiodarone 200 mg tablet 200 mg PO DAILY Eliquis 5 mg tablet 5 mg PO BID oxycodone 10 mg tablet 10 mg PO Q4H MDD 6 PRN (Reason: pain) 7 Days Qty: 42 0RF nitroglycerin [Nitrostat] 0.4 mg Tablet, Sublingual 0.4 mg SUBLINGUAL Q5M PRN (Reason: Chest Pain) Rx Instructions: do not exceed 3 doses per episode epinephrine 0.3 mg/0.3 mL Auto-Injector 0.3 mg IM ONCE PRN (Reason: Allergic Reaction) Rx Instructions: for 2 doses isosorbide dinitrate 10 mg Tablet 10 mg PO BID Rx Instructions: allow nitrate-free interval of 12-14 hrs per 24-hr period dofetilide [Tikosyn] 250 mcg Capsule 250 mcg PO Q12H Discharge Orders: Discharge ED (Routine); Ordered 10/05/24 Ordered By: Nirmala Newman Referrals: Jaylene Nickerson APRN [Primary Care Provider, Family Practice] Emma Cordova FNP [Nurse Practitioner, Wound Care] - 4-7 days Discharge Diet: Advance as tolerated Discharge Activity: Resume usual activity Patient Instructions: Acute Wound Care (ED), Acute Wounds (ED) Print Language: Thai Coding Level of Care Code ED Molasses Coloring Operator for July Issa
--- NOTE | 2024-10-05 15:12 | PC.PHAR ---
[facility] 10/05/24 3:10pm
[2024-10-05 15:34] LABS: Erythrocyte Sedimentation Rate 16 mm/hr (0-10)
[2024-10-05 15:36] LABS: Basophils % 0.6 %; Eosinophils # 0.8 10^3/uL (0.0-0.8); Eosinophils % 10.8 %; Hematocrit 39.8 % (37-53); Lymphocytes # 1.7 10^3/uL (0.8-4.8); Lymphocytes % 23.1 %; Mean Corpuscular HGB Conc 30.4 g/dL (30-55); Mean Corpuscular Hemoglobin 29.7 pg (27-33); Mean Corpuscular Volume 97.5 fl (82-101); Mean Platelet Volume 9.9 fL (7.4-10.4); Monocytes # 0.7 10^3/uL (0.2-0.9); Monocytes % 9.3 %; Neutrophils # 4.02 10^3/uL (1.8-7.7); Neutrophils % 55.9 %; Nucleated Red Blood Cells % 0 %; Platelet Count 204 10^3/cmm (157-399); Red Blood Count 4.08 10^6/uL (3.85-5.65); Red Cell Distribution Width 14.5 % (12.1-15.1); White Blood Count 7.19 10^3/uL (3.29-11.43)
[2024-10-05] MEDS: VANCOMYCIN ADD-Vantage 1,000 MG in 0.9% NaCl ADD-Vantage 250 ML 250 MG IV (15:50)
[2024-10-05 15:53] LABS: Alanine Aminotransferase 8 U/L (0-41); Albumin Level 3.7 g/dL (3.5-5.2); Alkaline Phosphatase 132 U/L (40-130); Anion Gap 15.1 (5-19); Aspartate Amino Transferase 14 U/L (0-40); Blood Urea Nitrogen 9 mg/dL (8-23); C Reactive Protein 22.7 mg/L (0.0-4.9); Calcium 9.5 mg/dL (8.5-10.5); Carbon Dioxide 24 mmol/L (22-29); Chloride 103 mmol/L (98-107); Creatinine Clr Calc Pharmacy 85.5759; Globulin 3.3 g/dL (1.3-4.6); Glomerular Filtration Rate 83.4 mL/min (90-130); Glucose 81 mg/dL (65-115); Osmolality Calculated 284 mOsm/kg (285-295); Potassium 4.1 mmol/L (3.5-5.1); Sodium 138 mmol/L (136-145); Total Bilirubin 1.1 mg/dL (0.15-1.2)
[2024-10-05 15:54] VITALS: BP 135/79; PULSE 71; RESP 18; O2SAT 99
--- NOTE | 2024-10-05 16:32 | PC.NURSE ---
Pt reports itching to face/ ears. No visible redness/ rash. Dr Villalba notified and vanc infusion rate decreased to 125ml/ hr. PT previously had rate of 250mls/hr and has approx 150ml remaining. Pt is up for d/c at this time, but pending completion of abx.
[2024-10-05 17:41] VITALS: BP 123/74; PULSE 74; O2SAT 97
--- NOTE | 2024-10-08 08:34 | PC.NURSE ---
Wound Care referral sent.
== END 2024-10-05 17:45 | disposition home or self-care (01) ==
PROVIDERS: Emergency Provider Emergency Medicine; PCP Nurse Practitioner Family
DX: S81.802A Unspecified open wound, left lower leg, initial encounter (principal); Z87.891 Personal history of nicotine dependence; I50.9 Heart failure, unspecified; Z79.82 Long term (current) use of aspirin; Z79.01 Long term (current) use of anticoagulants; X58.XXXA Exposure to other specified factors, initial encounter; M79.605 Pain in left leg
CPT/HCPCS: 36415; 73590; 80053; 85025; 85651; 86140; 93971; 96365; 96366; 99284; J3370; J7050

== ENCOUNTER → 2024-10-14 09:59 | Outpatient (BNVA) | payer OTHER, MEDICARE, SELFPAY | PROVIDERS: PCP Nurse Practitioner Family; Visit Provider Specialist | DX: M16.0 Bilateral primary osteoarthritis of hip (principal) | CPT/HCPCS: 73523; 99204 ==

== ENCOUNTER → 2024-10-27 13:06 | Outpatient (BNVA) | payer OTHER, MEDICARE, SELFPAY | PROVIDERS: PCP Nurse Practitioner Family; Visit Provider Thoracic Surgery (Cardiothoracic Vascular Surgery) | DX: I96 Gangrene, not elsewhere classified (principal); I87.2 Venous insufficiency (chronic) (peripheral); L97.822 Non-pressure chronic ulcer of other part of left lower leg with fat layer exposed | CPT/HCPCS: 11042; 11045; 99203 ==

== ENCOUNTER → 2024-10-29 12:56 | Outpatient (BNVA) | payer OTHER, SELFPAY | PROVIDERS: PCP Nurse Practitioner Family; Visit Provider Thoracic Surgery (Cardiothoracic Vascular Surgery) | DX: I87.312 Chronic venous hypertension (idiopathic) with ulcer of left lower extremity (principal) | CPT/HCPCS: 29581; A6197; A6252 ==

== ENCOUNTER → 2024-11-03 10:33 | Outpatient (BNVA) | payer OTHER, SELFPAY | PROVIDERS: PCP Nurse Practitioner Family; Visit Provider Thoracic Surgery (Cardiothoracic Vascular Surgery) | DX: I96 Gangrene, not elsewhere classified (principal); I87.2 Venous insufficiency (chronic) (peripheral); L97.822 Non-pressure chronic ulcer of other part of left lower leg with fat layer exposed | CPT/HCPCS: 11042; A6197; A6252 ==

== ENCOUNTER → 2024-11-17 10:01 | Outpatient (BNVA) | payer OTHER, SELFPAY | PROVIDERS: PCP Nurse Practitioner Family; Visit Provider Thoracic Surgery (Cardiothoracic Vascular Surgery) | DX: I96 Gangrene, not elsewhere classified (principal); I87.2 Venous insufficiency (chronic) (peripheral); L97.821 Non-pressure chronic ulcer of other part of left lower leg limited to breakdown of skin | CPT/HCPCS: 97597; 97598; A6197; A6253 ==

== ENCOUNTER → 2024-12-15 10:12 | Outpatient (BNVA) | payer OTHER, SELFPAY | PROVIDERS: PCP Nurse Practitioner Family; Visit Provider Thoracic Surgery (Cardiothoracic Vascular Surgery) | DX: I96 Gangrene, not elsewhere classified (principal); I87.2 Venous insufficiency (chronic) (peripheral); L97.822 Non-pressure chronic ulcer of other part of left lower leg with fat layer exposed | CPT/HCPCS: 11042; A6021; A6212 ×2; A6253 ==

== ENCOUNTER → 2024-12-21 13:51 | Outpatient (BNVA) | payer OTHER, SELFPAY | PROVIDERS: PCP Nurse Practitioner Family; Visit Provider Thoracic Surgery (Cardiothoracic Vascular Surgery) | DX: I96 Gangrene, not elsewhere classified (principal); I87.2 Venous insufficiency (chronic) (peripheral); L97.821 Non-pressure chronic ulcer of other part of left lower leg limited to breakdown of skin | CPT/HCPCS: 99212 ==

== ENCOUNTER → 2024-12-28 13:26 | Outpatient (BNVA) | payer OTHER, SELFPAY | PROVIDERS: PCP Nurse Practitioner Family; Visit Provider Thoracic Surgery (Cardiothoracic Vascular Surgery) | DX: I96 Gangrene, not elsewhere classified (principal); I87.2 Venous insufficiency (chronic) (peripheral); L97.821 Non-pressure chronic ulcer of other part of left lower leg limited to breakdown of skin | CPT/HCPCS: 97597; 97598; A6021; A6252; A6253 ==

== ENCOUNTER → 2025-01-05 12:56 | Outpatient (BNVA) | payer OTHER, SELFPAY | PROVIDERS: PCP Nurse Practitioner Family; Visit Provider Thoracic Surgery (Cardiothoracic Vascular Surgery) | DX: I96 Gangrene, not elsewhere classified (principal); I87.2 Venous insufficiency (chronic) (peripheral); L97.821 Non-pressure chronic ulcer of other part of left lower leg limited to breakdown of skin | CPT/HCPCS: 97597 ==

== ENCOUNTER → 2025-01-13 12:53 | Outpatient (BNVA) | payer OTHER, SELFPAY | PROVIDERS: PCP Nurse Practitioner Family; Visit Provider Podiatrist Foot & Ankle Surgery | DX: I73.9 Peripheral vascular disease, unspecified (principal); I87.312 Chronic venous hypertension (idiopathic) with ulcer of left lower extremity; L97.322 Non-pressure chronic ulcer of left ankle with fat layer exposed | CPT/HCPCS: 99203 ==

== ENCOUNTER → 2025-01-20 14:48 | Outpatient (BNVA) | payer OTHER, SELFPAY | PROVIDERS: PCP Nurse Practitioner Family; Visit Provider Podiatrist Foot & Ankle Surgery | DX: I73.9 Peripheral vascular disease, unspecified (principal); L97.322 Non-pressure chronic ulcer of left ankle with fat layer exposed | CPT/HCPCS: 99213 ==

== ENCOUNTER → 2025-01-27 13:27 | Outpatient (BNVA) | payer OTHER, SELFPAY | PROVIDERS: PCP Nurse Practitioner Family; Visit Provider Podiatrist Foot & Ankle Surgery | DX: I73.9 Peripheral vascular disease, unspecified (principal); I83.028 Varicose veins of left lower extremity with ulcer other part of lower leg; L97.822 Non-pressure chronic ulcer of other part of left lower leg with fat layer exposed | CPT/HCPCS: 99213 ==

== ENCOUNTER → 2025-02-24 13:54 | Outpatient (BNVA) | payer OTHER, SELFPAY | PROVIDERS: PCP Family Medicine Geriatric Medicine; Visit Provider Podiatrist Foot & Ankle Surgery | DX: I73.9 Peripheral vascular disease, unspecified (principal); L97.322 Non-pressure chronic ulcer of left ankle with fat layer exposed; I89.0 Lymphedema, not elsewhere classified | CPT/HCPCS: 99213 ==

== ENCOUNTER → 2025-02-25 10:46 | Outpatient (BNVA) | payer OTHER, SELFPAY | PROVIDERS: PCP Family Medicine Geriatric Medicine; Visit Provider Student in an Organized Health Care Education/Training Program | DX: I83.009 Varicose veins of unspecified lower extremity with ulcer of unspecified site (principal); I89.0 Lymphedema, not elsewhere classified; X58.XXXA Exposure to other specified factors, initial encounter | CPT/HCPCS: 99205 ==

== ENCOUNTER → 2025-03-01 11:32 | Outpatient (BNVA) | payer OTHER, SELFPAY | PROVIDERS: PCP Family Medicine Geriatric Medicine; Visit Provider Podiatrist Foot & Ankle Surgery | DX: I73.9 Peripheral vascular disease, unspecified (principal); I89.0 Lymphedema, not elsewhere classified; L03.116 Cellulitis of left lower limb; L97.322 Non-pressure chronic ulcer of left ankle with fat layer exposed | CPT/HCPCS: 99214 ==

== ENCOUNTER 2025-03-16 14:00 | Outpatient (RCR) | payer OTHER, SELFPAY | END 2025-03-19 23:59 | disposition home or self-care (01) | LOC: TPT 14:00 | PROVIDERS: Visit Provider Family Medicine Geriatric Medicine | DX: M54.51 Vertebrogenic low back pain (principal) | CPT/HCPCS: 97110; 97162 ==

== ENCOUNTER → 2025-03-22 13:24 | Outpatient (BNVA) | payer OTHER, SELFPAY | PROVIDERS: PCP Family Medicine Geriatric Medicine; Visit Provider Podiatrist Foot & Ankle Surgery | DX: I73.9 Peripheral vascular disease, unspecified (principal); I89.0 Lymphedema, not elsewhere classified; L03.116 Cellulitis of left lower limb | CPT/HCPCS: 99213 ==

== ENCOUNTER 2025-04-25 17:52 | Emergency (ER) | payer OTHER, SELFPAY ==
--- OUTSIDE RECORDS SUMMARY | 2025-04-25 18:01 | XMS_ITS | Encounter Summary ---
Author Organization [facility] Address [address] [place] [id number] Care Team Providers Care Nurses' Aide Name Role Phone Unavailable Primary Care Provider Unavailabl e Reason for Referral * EVAL & TREAT (Routine) - Pending Review Specialty Diagnoses / Procedures Referred By Contact Referred To Contact Orthopedic Surgery / Orthopedics Diagnoses Pain in left shoulder [facility] [address] [place] [address] Phone: tel: fax: [facility] [place] [address] Phone: tel: fax: Referral ID Status Reason Start Date Expiration Date Visits Requested Visits Authorized [id number] Pending Review Specialty Services Required 01/27/2025 01/28/2026 1 1 Question Answer Additional Details Shoulder/Elbow Encounter Details Date Type Department Care Team (Late st Contact Info) Description 01/28/2025 Order [place]ing [place] [address] External Referring Provider, Not In System [address] [place] [id number] Pain in left shoulder (Primary Dx) Social History Tobacco Use Types Packs/Day Years Used Date Smoking Tobacco: Never Assessed Sex and Gender Information Value Date Recorded Sex Assigned at Not on file Legal Sex Male 2:32 PM CDT Gender Identity Not on file Sexual Orientation Not on file documented as of this encounter Plan of Treatment Scheduled Referrals Name Type Priority Associated Diagnoses Order Schedule Ambulatory Referral to Orthopedic Surgery Outpatient Referral Routine Pain in left shoulder 1 Occurrences starting 01/28/2025 until 01/28/2026 documented as of this encounter Visit Diagnoses Diagnosis Pain in left shoulder- Primary documented in this encounter
--- OUTSIDE RECORDS SUMMARY | 2025-04-25 18:01 | XMS_ITS | Encounter Summary ---
Author Organization [facility] Address [address] [place] [address] Care Team Providers Care Boring Machine Operator Production Name Role Phone Unavailable Primary Care Provider Unavailabl e Encounter Details Date Type Department Care Team (Late st Contact Info) Description 12/26/2023 Order Patient [place] [address] [facility] [address] [place] [address] Lymphedema, not elsewhere classified (Primary Dx) Social History Tobacco Use Types Packs/Day Years Used Date Smoking Tobacco: Never Assessed Sex and Gender Information Value Date Recorded Sex Assigned at Not on file Legal Sex Male 2:32 PM CDT Gender Identity Not on file Sexual Orientation Not on file documented as of this encounter Plan of Treatment Not on file documented as of this encounter Visit Diagnoses Diagnosis Lymphedema, not elsewhere classified- Primary documented in this encounter
--- OUTSIDE RECORDS SUMMARY | 2025-04-25 18:01 | XMS_ITS | Encounter Summary ---
Author Organization [facility] Address [address] [place] [address] Care Team Providers Care Art Studio Teacher Name Role Phone Unavailable Primary Care Provider Unavailabl e Reason for Referral * EVAL & TREAT (Routine) - Pending Review Specialty Diagnoses / Procedures Referred By Contact Referred To Contact Orthopedic Surgery / Orthopedics Diagnoses Pain in left shoulder [facility] [address] [place] [address] Phone: tel: fax: [facility] [address] Phone: tel: fax: Referral ID Status Reason Start Date Expiration Date Visits Requested Visits Authorized [id number] Pending Review Specialty Services Required 01/13/2025 01/13/2026 1 1 Question Answer Additional Details Shoulder/Elbow Encounter Details Date Type Department Care Team (Late st Contact Info) Description 01/13/2025 Order [place]othing [place] [address] External Referring Provider, Not In System [address] [place] [id number] Pain in left shoulder (Primary Dx) Social [...] Pain in left shoulder 1 Occurrences starting 01/13/2025 until 01/13/2026 documented as of this encounter Visit Diagnoses Diagnosis Pain in left shoulder- Primary documented in this encounter
--- OUTSIDE RECORDS SUMMARY | 2025-04-25 18:01 | XMS_ITS | Encounter Summary ---
Author Organization [facility] Address [address] [facility] [place] [address] Care Team Providers Care Ice Cream Mixer Name Role Phone Unavailable Primary Care Provider Unavailabl e Encounter Details Date Type Department Care Team (Late st Contact Info) Description 08/11/2024 Outside Records [facility] [address] [facility] [place] [address] Interface, Provider Social History Tobacco Use Types Packs/Day Years Used Date Smoking Tobacco: Never Assessed Sex and Gender Information Value Date Recorded Sex Assigned at Not on file Legal Sex Male 2:32 PM CDT Gender Identity Not on file Sexual Orientation Not on file documented as of this encounter Plan of Treatment Not on file documented as of this encounter Visit Diagnoses Not on filedocumented in this encounter
--- OUTSIDE RECORDS SUMMARY | 2025-04-25 18:01 | XMS_ITS | Encounter Summary ---
Author Organization [facility] Address [address] [place] [address] Care Team Providers Care Fashion Illustrator Name Role Phone Unavailable Primary Care Provider Unavailabl e Reason for Referral * EVAL & TREAT (Routine) - Authorized Specialty Diagnoses / Procedures Referred By Kailee t Referred To Contact Orthopedic Surgery / Orthopedics Diagnoses Pain in left shoulder Ryan Escobar MD [address] [place] [address] Phone: tel: fax: Steve Ny MD [address] [place] [address] Phone: tel: fax: Referral ID Status Reason Start Date Expiration Date Visits Requested Visits Authorized [id number] Authorized Specialty Services Required 11/10/2024 06/12/2025 999 999 Question Answer Additional Details Shoulder/Elbow Encounter Details Date Type Department Care Team (Latest Contact Info) Description 11/10/2024 Order Quality Assurance [place] [address] Ryan Escobar MD [address] [place], [place] [address] Pain in left shoulder (Primary Dx) Social [...] Pain in left shoulder 1 Occurrences starting 11/10/2024 until 11/10/2025 documented as of this encounter Visit Diagnoses Diagnosis Pain in left shoulder- Primary documented in this encounter
--- OUTSIDE RECORDS SUMMARY | 2025-04-25 18:01 | XMS_ITS | Encounter Summary ---
Author Organization [facility] Address [address] [place] [address] Care Team Providers Care Economic Analysis Director Name Role Phone Unavailable Primary Care Provider Unavailabl e Encounter Details Date Type Department Care Team (Late st Contact Info) Description 01/09/2024 Order Paper [place] [address] [facility] [address] [place] [address] Pain in left shoulder (Primary Dx) Social [...]
--- OUTSIDE RECORDS SUMMARY | 2025-04-25 18:01 | XMS_ITS | Clinical Summary ---
Author Organization [facility] [employer] Address [address] [place] [address] Care Team Providers Care Museum Or Zoo Director Name Role Phone Unavailable Primary Care Provider Unavailabl e Encounters Date Type Department Care Team Description 01/28/2025 Order Optician [place] [address] External Referring Provider, Not In System Pain in left shoulder (Primary Dx) from Last 3 Months Social History Tobacco Use Types Packs/Day Years Used Date Smoking Tobacco: Never Assessed Sex and Gender Information Value Date Recorded Sex Assigned at Not on file Legal Sex Male 2:32 PM CDT Gender Identity Not on file Sexual Orientation Not on file Plan of Treatment Health Maintenance Due Date Last Done Comments COLONOSCOPY 1954 CT Colonography 1954 Colorectal Cancer Screening 1954 FIT DNA 1954 FIT 1954 Hepatitis C Screening 1954 SIGMOIDOSCOPY 1954 Depression Screening 02/18/1972 Lipid Panel 1994 Zoster Vaccine (1 of 2) 02/18/2004 Annual Wellness Exam 05/20/2024 COVID-19 Vaccine ( - 2023-2 5 season) 2025 Influenza Series (#1) 2025 Respiratory Syncytial Virus (RSV) Immunization - pts and pts aged 60 yrs+ (1 - 1-dose 75+ series) 2029 TDAP/DTaP/TD Vaccines (2 - T d or Tdap) 03/18/2030 03/18/2020 Pneumococcal Vaccine 50+ Completed 023, 02/15/2021 Hepatitis B Vaccine Aged Out No longe r eligible based on patient's age to complete this topic Meningococcal B Vaccine Aged Out No l onger eligible based on patient's age to complete this topic Insurance [facility] [place] [id number] [place] [facility] [employer] CHOICE PPO
--- OUTSIDE RECORDS SUMMARY | 2025-04-25 18:01 | XMS_ITS | Clinical Summary ---
Author Organization [facility] Address [address] [place] [address] Phone Care Team Providers Care Director Quality Systems Name Role Phone Unavailable Primary Care Provider Unavailabl e Allergies Active Allergy Reactions Criticality Noted Date Comments Bee Pollen Shortness Of Breath High 08/17/2024 Mercury (Elemental) Other (See Comments) 2024 Burning sensation Silver Other (See Comments) 08/17/2024 Burning sensation Medications cyclobenzaprine (FLEXERIL) 10 MG tablet Take one tablet (10 mg total) by mouth in the morning and one tablet (10 mg total) at noon and one tablet (10 mg total) before bedtime. 5 Active folic acid (FOLVITE) 1 MG tablet Take one tablet (1,000 mcg total) by mouth one (1) time a day 5 Active gabapentin (NEURONTIN) 600 MG tablet Take one tablet (600 mg total) by mouth in the morning and one tablet (600 mg total) at noon and one tablet (600 mg total) before bedtime. 5 Active lidocaine 5 % cream Apply topically 2 (two) times a day 5 Active meloxicam (MOBIC) 15 MG tablet Take one tablet (15 mg total) by mouth one (1) time a day 5 Active methotrexate (TREXALL) 2.5 MG tablet Take four tablets (10 mg total) by mouth 5 Active oxyCODONE (OXY IR) 10 mg tablet Take one tablet (10 mg total) by mouth every 4 (four) hours as needed 5 Active polyethylene glycol (GLYCOLAX) 17 gram/dose oral powder SMARTSI Capful(s) By Mouth Daily 5 Active triamcinolone (KENALOG) 0.1 % cream Apply topically 2 (two) times a day 4 Active Encounters Date Type Department Care Team Description 04/09/2025 Telephone [facility] [address] [place], [place] [address] Kaykay Saunders MD 03/10/2025 Travel from Last 3 Months Social History Tobacco Use Types Packs/Day Years Used Date Smoking Tobacco: Never Assessed B1300 Health Literacy Answer Date Recor ded How often do you need to hav e someone help you when you read instructions, pamphlets, or other written material from your doctor or pharmacy? Never 08/17/2024 [facility] Utilities Answer Date Recorded In the past 12 months has e [employer], gas, oil, or water [employer] threatened to shut off services in your home? No 08/17/2024 Humiliation, Afraid, Rape, and Kick questionnair e Answer Date Recorded Within the last year, have y ou been afraid of your partner or ex-partner? No 08/17/2024 Within the last year, have y ou been humiliated or emotionally abused in other ways by your partner or ex-partner? No Within the last year, have y ou been kicked, hit, slapped, or otherwise physically hurt by your partner or ex-partner? No 08/17/2024 Within the last year, have y ou been raped or forced to have any kind of sexual activity by your partner or ex-partner? No 08/17/2024 Social Connection and Isolation Panel Answer Date Recorded In a typical week, how many times do you talk on the phone with family, friends, or neighbors? More than three times a week 08/17/2024 How often do you get togethe r with friends or relatives? Never 08/17/2024 How often do you attend chur or religion services? Never 08/17/2024 Do you belong to any clubs o r organizations such as latter-day groups, unions, fraternal or athletic groups, or school groups? Yes 08/17/2024 How often do you attend meet ings of the clubs or organizations you belong to? More than 4 times per year 08/17/2024 Are you , , di vorced, , never , or living with a partner? 08/17/2024 AUDIT-C Answer Date Recorded Q1: How often do you have a drink containing alcohol? Never 08/17/2024 Q2: How many drinks containi ng alcohol do you have on a typical day when you are drinking? Patient does not drink Q3: How often do you have si x or more drinks on one occasion? Never 08/17/2024 Overall Financial Resource Strain (CARDIA) Answe r Date Recorded How hard is it for you to pa y for the very basics like food, housing, medical care, and heating? Somewhat hard 08/17/2024 [facility] - Occupational Stress Questionnaire Answer Date Recorded Do you feel stress - tense, restless, nervous, or anxious, or unable to sleep at night because your mind is troubled all the time - these days? To some extent 08/17/2024 Exercise Vital Sign Answer Date Recorde d On average, how many days pe r week do you engage in moderate to strenuous exercise (like a brisk walk)? 0 days 08/17/2024 On average, how many minutes do you engage in exercise at this level? 0 min 08/17/2024 Hunger Vital Sign Answer Date Recorded Within the past 12 months, y ou worried that your food would run out before you got the money to buy more. Never true 08/18/19 25 Within the past 12 months, t he food you bought just didn't last and you didn't have money to get more. Never true 08/17/2024 PRAPARE - Transportation Answer Date Re corded In the past 12 months, has l ack of transportation kept you from medical appointments or from getting medications? No 07/20 In the past 12 months, has l ack of transportation kept you from meetings, work, or from getting things needed for daily living? No 08/17/2024 Housing Stability Vital Sign Answer Angel e Recorded In the last 12 months, was t here a time when you were not able to pay the mortgage or rent on time? No 08/17/2024 In the past 12 months, how m any times have you moved where you were living? 1 08/17/2024 At any time in the past 12 m [facility], were you homeless or living in a fci (including now)? No 08/17/2024 Sex and Gender Information Value Date Recorded Sex Assigned at Not on file Legal Sex Male 10:15 AM CDT Gender Identity Not on file Sexual Orientation Not on file Last Filed Vital Signs Vital Sign Reading Time Taken Comments Blood Pressure 128/78 08/17/2024 1:21 PM CDT Pulse 85 08/17/2024 1:21 PM CDT Temperature - - Respiratory Rate 18 08/17/2024 1:21 PM CDT Oxygen Saturation 95% 08/17/2024 1:21 PM CDT Inhaled Oxygen Concentration - - Weight 84.7 kg (186 lb 11.2 oz) 08/17/2024 1:21 PM CDT Height - - Body Mass Index - - Plan of Treatment Health Maintenance Due Date Last Done Comments Colonoscopy Every 6 Months 1954 Colorectal Cancer Screening Annual FOBT/FIT Test 1954 Colorectal Cancer Screening Cologuard 1954 Colorectal Cancer Screening Flex Sigmoidoscopy 1954 Annual Depression Screening 1965 Colorectal CA Screen 10 Year Colonoscopy 1999 Colorectal Cancer Screening 1999 RSV Immunization Pa tients or 60+ Years (1 - Risk 60-74 years 1-dose series) 2014 Flu Vaccine (#1) 01/18/2025 Influenza Vaccine 01/18/2025 Pneumococcal Vaccine Age 50+ Completed 05/16/2023, 02/15/2021 Hepatitis C Antibody Screen Completed 08/17/2024 Procedures Procedure Name Priority Date/Time Associated Diagnosis Comments HEPATITIS PANEL, ACUTE Routine 08/17/2024 3:04 PM CDT Skin rash from Last 3 Months or Most Recently Relevant to Health Maintenance Results * Hepatitis panel, acute (08/17/2024 3:04 PM CDT) Hepatitis A Virus IgM Antibody Negative Negative 08/18/2024 5:25 AM CDT [facility] Hepatitis B Virus Surface Antigen Negative Negative 08/18/2024 5:25 AM CDT [facility] Hepatitis B Virus Core IgM Antibody Negative Negative 08/18/2024 5:25 AM CDT [facility] Hepatitis C Virus Antibody Negative Negative 08/18/2024 5:25 AM CDT [facility] Comment: Unless otherwise indicated, all testing performed at: [facility] [address] [place] [address] Phytopathology Teacher: Morenita Aponte M.D. [facility]# [id number] Blood Venipuncture / Unknown 08/17/2024 3:04 PM CDT 08/17/2024 3:14 PM CDT us Kaykay Saunders MD LAB BLOOD ORDERABLES F inal Result [facility] [address] [place] [address], [facility] [phone] from Last 3 Months or Most Recently Relevant to Health Maintenance Insurance [facility] [employer]
--- OUTSIDE RECORDS SUMMARY | 2025-04-25 18:02 | XMS_ITS | Patient Health Record ---
Author Organization [facility] Address [address] [place] [address] Care Team Providers Care Payroll Representative Name Role Phone Bronson Wesley Primary Care Provider [phone] Allergies Allergen (clinical drug ingredient) Drug/Non Drug Allergy documented on EMR Reaction Allergy Type Onset Date Status bee stings (uncoded) swekking, itch all over Allergy Active Mercury mercury (uncoded) Unknown Allergy Ac tive verified (uncoded) Unknown Allergy A ctive Reason For Referral No Information Medications Medication SIG (Take, Route, Frequency, Duration) Notes Start Date End Date Status Olopatadine HCl 0.7 % Solution 1 drop into affected eye Ophthalmic Once a day Active Lisinopril 2.5 MG Tablet 1 tablet Orally Once a day Active traMADol HCl 50 MG Tablet 1 tablet as ne eded Orally Once a day Active Lasix 20 mg Tablet 1 tablet Orally Once a day prn Active Atorvastatin Calcium 80 MG Tablet 1 tablet Orally Once a day Active Apixaban 5 MG Tablet as directed Orally Active Aspirin 81 MG Tablet Chewable 1 tablet Orally Once a day Active Isosorbide Mononitrate 60 MG Tablet Extended Release 24 Hour 1 tablet in the morning Orally Once a day Active Fluocinonide 0.05 % Externally Twice a day Not-Taking Carvedilol 12.5 MG Tablet 1 tablet Orall y two times daily Not-Taking Immunizations Vaccine Route Administration Date Status Comme nts DTaP (Infanrix) Unknown 01/03/2017 Administered Social History Social History Additional Details Category Social Info Options Details General Caffeine: no Nicotine use: none Section Notes: 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 Problems Problem Type SNOMED Code ICD Code Onset Dates Problem Status W/U Status Risk Notes Problem Low back pain (692013736) Low back pain (M54.5) Active confirmed Problem Paroxysmal atrial fibrillation (947458491) Paroxysmal atrial fibrillation (I48.0) Active confirmed Problem Essential hypertension (33512037) Essential (primary) hypertension (I10) Active confirmed Problem Chronic fatigue syndrome (83843147) Chronic fatigue (R53.82) Active confirmed Problem Erectile dysfunction (disorder) (576203015) Male erectile dysfunction, unspecified (N52.9) Active confirmed Problem Male hypogonadism (72767971) Hypogonadism in male (E29.1) Active confirmed Problem Gastro-esophageal reflux disease without esophagitis (152526892) Gastro-esophageal reflux disease without esophagitis (K21.9) Active confirmed Problem Hyperlipidemia (84942468) Hyperlipidemia, unspecified (E78.5) Active confirmed Problem Hyperosmolarity due to secondary diabetes mellitus (038567497427894) Type 2 diabetes mellitus with hyperosmolarity without nonketotic hyperglycemic-hype rosmolar coma ([facility]) (E11.00) Active confirmed Problem Peripheral venous insufficiency (96659246) Venous insufficiency (chronic) (peripheral) (I87.2) Active confirmed Problem Ankle ulcer (202470329) Non-pressure chronic ulcer of right ankle with fat layer exposed (L97.312) Active confirmed Problem Osteoarthritis of hip (604926958) Osteoarthritis of hip, unspecified (M16.9) Active confirmed Problem 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 (352151136188770) Coronary artery disease involving rampart coronary artery of rampart heart without angina pectoris (I25.10) Active confirmed Problem Elevated PSA (998769799) Elevated prostate specific antigen [PSA] (R97.20) Active confirmed Problem Chronic systolic heart failure (416759432) Chronic systolic congestive heart failure, NYHA class 3 (I50.22) Active confirmed Plan Of Treatment No Information Insurance Providers Payer Name Payer Address Payer Phone Subscriber Number Group Number Insured Name Patient Relationship to Insured Coverage Start Date Coverage End Date Medicare [address] [place] [id number] Bijan Paredes Self - patient is the insured Medical (General) History Medical History History ICD Code HTN acid reflux hyperlipidemia diabetes-hyperosmolar non ketotic left malleolar fracture allergic rhinitis erectile dysfunction history of tobacco abuse elevated PSA history of left shoulder pain adjustment disorder Surgical History Surgery Date(Month/Year) heart defib 2019 stent placed tendon repair right arm left shoulder 2018 right shoulder 2015 nerve transplant hernia left index finger tonsilectomy left ankle Fx repair
[2025-04-25 18:07] VITALS: BP 144/73; PULSE 74; RESP 16; TEMP 36.7; O2SAT 98; BMI 23.7
--- NOTE | 2025-04-25 18:33 | CTR_ITS ---
PROCEDURE INFORMATION: Exam: CT Pelvis Without Contrast, Skeleton Exam date and time: 04/25/2025 6:41 PM Age: 70 years old Clinical indication: Injury or trauma; Fall; Additional info: Fall bilat hip pain TECHNIQUE: Imaging protocol: Computed tomography of the pelvis without contrast. Exam focused on the skeleton. Radiation optimization: All CT scans at this facility use at least one of these dose optimization techniques: automated exposure control; mA and/or kV adjustment per patient size (includes targeted exams where dose is matched to clinical indication); or iterative reconstruction. COMPARISON: CR XR hip BI m 5V wo/w pel* [id number] 10/14/2024 10:03 AM RADIATION DOSE METRICS: Total DLP (mGy-cm): 375.3 FINDINGS: Bones/joints: Prior vertebroplasty L4 vertebra with old severe compression deformity. No acute fracture or dislocation is seen about the hips. No acute fracture or diastasis is seen about the pelvis. Mild degenerative change about the pelvis and hips. Degenerative change noted visualized lower lumbar spine. Soft tissues: No soft tissue fluid collection or hematoma is seen. CT/CT pelvis wo con [id number] IMPRESSION: 1. Old severe compression deformity L4 with prior vertebroplasty. 2. No acute fracture is seen about the hips or pelvis.
--- NOTE | 2025-04-25 18:33 | CTR_ITS ---
PROCEDURE INFORMATION: Exam: CT Lumbar Spine Without Contrast Exam date and time: 04/25/2025 6:41 PM Age: 70 years old Clinical indication: Injury or trauma; Fall; Blunt trauma (contusions or hematomas); Prior surgery; Surgery date: 6+ months; Surgery type: Lumbar; Additional info: Fall low back pain TECHNIQUE: Imaging protocol: Computed tomography of the lumbar spine without contrast. Radiation optimization: All CT scans at this facility use at least one of these dose optimization techniques: automated exposure control; mA and/or kV adjustment per patient size (includes targeted exams where dose is matched to clinical indication); or iterative reconstruction. COMPARISON: CT lumbar spine wo con* [id number] 06/17/2024 2:01 PM RADIATION DOSE METRICS: Total DLP (mGy-cm): 678.9 FINDINGS: Bones/joints: Prior vertebroplasty L4 for old compression deformity which appears moderate to severe and with moderate retropulsion of the posterosuperior aspect of L4 vertebra into the spinal canal. Vertebroplasty is new from prior exam 06/17/2024, as well as interval progression of loss of vertebral body height and retropulsion of the posterosuperior aspect of the L4 vertebra. Mild to moderate superior endplate depression L2 and L3 vertebra has shown interval progression since prior exam 06/17/2024 as well. No findings to indicate acute fracture or fracture line when correlating all images. Previous laminectomy L3-L4 and L4-L5 levels that is chronic with prior exam. Spondylotic change with degenerative disc disease L2-L3 L5-S1 levels. More significant narrowing of the spinal canal is secondary to retropulsion of the posterosuperior aspect of the L4 vertebra along with facet spondylotic change posteriorly at the L3-L4 level though with some decompression posteriorly with prior laminectomy. Moderate disc bulge L5-S1 with mild compromise of the anterior spinal canal. Multilevel neural foraminal narrowing. Vasculature: Mild chronic dilatation of the distal abdominal aorta with prior exam of 3.1 cm. Soft tissues: Unremarkable. CT/CT lumbar spine wo con* [id number] IMPRESSION: 1. No acute fracture is seen. 2. Prior vertebroplasty L4 for old compression deformity that appears moderate to severe with moderate retropulsion of the posterosuperior aspect of L4 vertebra into the spinal canal, as noted above. Interval progression since prior CT 06/17/2024. 3. [id number] superior endplate depression L2 and L3 as noted above. Interval progression since prior CT 06/17/2024. 4. Spondylotic or degenerative changes.
--- NOTE | 2025-04-25 18:35 | W.ED.FALL ---
HPI - Fall General: Chief Complaint: Fall Stated Complaint: fell- lower back and hip pain Time Seen by Provider: 04/25/25 18:05 History of Present Illness: Patient is a 70-year-old male who presents with acute low back pain after being knocked off his feet by his two [place] puppies yesterday. He describes pain radiating from his lower back around to his bilateral hip sockets and down into his groin. He reports sharp pain in his lower back with deep breathing, coughing, or sneezing. The patient has a history of spinal issues, noting that in July of this year he had imaging that revealed a crushed disc and a cracked disc above it. He underwent spine surgery which initially provided relief. 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 The patient reports his back pain has returned, and he is concerned about possible new disc issues. He uses a cane for ambulation and occasionally requires a walker when his mobility is more limited. Related Data Home Medications ?Medication ?Instructions ?Recorded ?Confirmed amiodarone 200 mg tablet 200 mg PO DAILY 03/10/24 03/22/25 apixaban 5 mg tablet (Eliquis) 5 mg PO BID 03/10/24 03/22/25 aspirin 81 mg tablet,delayed 81 mg PO DAILY 03/10/24 03/22/25 release (Adult Aspirin Regimen) cholecalciferol (vitamin D3) 25 25 mcg PO DAILY 03/10/24 03/22/25 mcg (1,000 unit) capsule cyanocobalamin (vitamin B-12) 1,000 mcg PO DAILY 03/10/24 03/22/25 1,000 mcg capsule empagliflozin 10 mg tablet 10 mg PO DAILY 03/10/24 03/22/25 (Jardiance) fexofenadine 180 mg tablet 180 mg PO DAILY 03/10/24 03/22/25 (Allergy Relief (fexofenadine)) furosemide 80 mg tablet 80 mg PO QAM 03/10/24 03/22/25 gabapentin 600 mg tablet 600 mg PO TID 03/10/24 03/22/25 multivitamin 1 tab PO DAILY 03/10/24 03/22/25 omeprazole 20 mg capsule,delayed 20 mg PO QAM 10/22/24 11/03/25 release spironolactone 25 mg tablet 25 mg PO DAILY 03/10/24 03/22/25 metoprolol succinate 50 mg 25 mg PO QAM 04/21/24 03/22/25 tablet,extended release 24 hr sacubitril 49 mg-valsartan 51 mg 0.5 tab PO BID 04/21/24 03/22/25 tablet (Entresto) epinephrine 0.3 mg/0.3 mL 0.3 mg IM ONCE PRN Allergic 06/17/24 03/22/25 injection, auto-injector Reaction nitroglycerin 0.4 mg sublingual 0.4 mg sublingual Q5M PRN Chest 06/17/24 03/22/25 tablet (Nitrostat) Pain dofetilide 250 mcg capsule 250 mcg PO Q12H 10/05/24 03/22/25 (Tikosyn) isosorbide dinitrate 10 mg tablet 10 mg PO BID 10/05/24 03/22/25 Previous Rx's ?Medication ?Instructions ?Recorded amoxicillin 500 mg-potassium 1 tab PO BID #14 tabs 12/15/24 clavulanate 125 mg tablet (Augmentin) [id number] Compression #1 ea 02/24/25 stockings Absorbent waterproof/bacteria #60 ea 04/07/25 proof film dressing oxycodone-acetaminophen 7.5 mg-325 1 tab PO Q6H PRN pain #7 tabs 04/25/25 mg tablet (Percocet) Allergies Allergy/AdvReac Type Severity Reaction Status Date / Time Alpha-Gal Allergy ALGY-Difficulty Verified 03/22/25 13:42 (Atzmiyzwt-Vcugr-1,3-Gala Breathing bee venom protein (honey bee) Allergy ADR-Itching Verified 03/22/25 13:42 mercury (elemental) Allergy SWELLING Verified 03/22/25 13:42 silver nitrate Allergy Unknown Verified 03/22/25 13:42 [facility] PFSH: Medical History CHF (congestive heart failure), NYHA class III Ischemic cardiomyopathy Hypertension after donor nephrectomy requiring medication CHF (congestive heart failure) Ischemic cardiomyopathy Social History Smoking and tobacco/nicotine status: former use of tobacco/nicotine Physical Exam Const: COMMON NORMALS: no acute distress GENERAL APPEARANCE: cooperative; not ill appearing and not frail appearing HENMT: COMMON NORMALS: normocephalic, atraumatic and Normal external nose present HEAD & SCALP: normocephalic and atraumatic FACE & SINUS: normal facial exam and face symmetric NOSE: Normal external nose present Eye: COMMON NORMALS: Equal, round and reactive pupils present and EOMs intact bilaterally PUPIL: Yes Equal, round and reactive pupils present Neck/C-Spine: GENERAL: Yes trachea midline Chest: CHEST: Yes Symmetrical chest wall rise Resp: COMMON NORMALS: normal respiratory effort, No retractions, No use of accessory muscles and clear to auscultation bilaterally AUSCULTATION: clear to auscultation bilaterally Cardio: COMMON NORMALS: regular rate and regular rhythm RATE: regular rate RHYTHM: regular rhythm Extremity: COMMON NORMALS: no pedal edema Neuro: GEE COMA SCALE: document GCS findings Gee coma scale eye opening: Spontaneous Gee coma scale verbal response: Orientated Gee coma scale motor response: Obey commands [place] coma scale total score: 15 SENSORY EXAM: Yes extremities (intact) Psych: COMMON NORMALS: speech normal SPEECH: Yes normal speech Course Vital Signs: Vital signs: Vital Signs Temperature 98.1 F 04/25/25 18:07 Pulse Rate 63 04/25/25 20:38 Respiratory Rate 18 04/25/25 18:59 Blood Pressure 140/77 04/25/25 20:38 Pulse Oximetry 99 04/25/25 20:38 Oxygen Delivery Me thod Room Air 04/25/25 18:59 MDM - Fall Medical Decision Making 70-year-old male with acute on chronic back and hip pain. CTs revealed no acute fractures. There is moderate to severe compression deformities of L4 that are old. Likely the cause of his symptoms. There is some retropulsion. He has no neurologic findings. Short course pain medication. Outpatient follow-up. Stable for discharge Lab Data Radiology Impressions Lumbar Spine CT 04/25/25 18:33 IMPRESSION: 1. No acute fracture is seen. 2. Prior vertebroplasty L4 for old compression deformity that appears moderate to severe with moderate retropulsion of the posterosuperior aspect of L4 vertebra into the spinal canal, as noted above. Interval progression since prior CT 06/17/2024. 3. [id number] superior endplate depression L2 and L3 as noted above. Interval progression since prior CT 06/17/2024. 4. Spondylotic or degenerative changes. Pelvis CT 04/25/25 18:33 IMPRESSION: 1. Old severe compression deformity L4 with prior vertebroplasty. 2. No acute fracture is seen about the hips or pelvis. All radiology interpretation(s) finalized by discharge Discharge Plan Discharge Patient Disposition: Home Clinical Impression: Lumbar spondylolysis Condition: Stable Prescriptions: New oxycodone-acetaminophen [Percocet] 7.5-325 mg tablet 1 tab PO Q6H PRN (Reason: pain) Qty: 7 0RF Discontinued oxycodone 10 mg tablet 10 mg PO Q8H MDD 6 PRN (Reason: pain) 7 Days Qty: 21 0RF No Action Entresto 49-51 mg tablet 0.5 tab PO BID metoprolol succinate 50 mg tablet extended release 24 hr 25 mg PO QAM amoxicillin-pot clavulanate [Augmentin] 500-125 mg tablet 1 tab PO BID Qty: 14 0RF Jardiance 10 mg tablet 10 mg PO DAILY omeprazole 20 mg capsule,delayed release(DR/EC) 20 mg PO QAM aspirin [Adult Aspirin Regimen] 81 mg tablet,delayed release (DR/EC) 81 mg PO DAILY cholecalciferol (vitamin D3) 25 mcg (1,000 unit) capsule 25 mcg PO DAILY cyanocobalamin (vitamin B-12) 1,000 mcg capsule 1,000 mcg PO DAILY fexofenadine [Allergy Relief (fexofenadine)] 180 mg tablet 180 mg PO DAILY furosemide 80 mg tablet 80 mg PO QAM gabapentin 600 mg tablet 600 mg PO TID multivitamin Tablet 1 tab PO DAILY spironolactone 25 mg tablet 25 mg PO DAILY amiodarone 200 mg tablet 200 mg PO DAILY Eliquis 5 mg tablet 5 mg PO BID (DME) [id number] Compression stockings See Rx Instructions .Route .MEDSUPPLY Qty: 1 0RF Rx Instructions: As directed by [facility] LEFT AND RIGHT MEASUREMENTS: Ankle Circ-23cm Calf Circ-26cm Length toes to knee-65cm (DME) Absorbent waterproof/bacteria proof film dressing 4 inch x 8inch(10cm x 20cm) See Rx Instructions .Route .MEDSUPPLY Qty: 60 0RF Rx Instructions: As directed nitroglycerin [Nitrostat] 0.4 mg Tablet, Sublingual 0.4 mg SUBLINGUAL Q5M PRN (Reason: Chest Pain) Rx Instructions: do not exceed 3 doses per episode epinephrine 0.3 mg/0.3 mL Auto-Injector 0.3 mg IM ONCE PRN (Reason: Allergic Reaction) Rx Instructions: for 2 doses isosorbide dinitrate 10 mg Tablet 10 mg PO BID Rx Instructions: allow nitrate-free interval of 12-14 hrs per 24-hr period dofetilide [Tikosyn] 250 mcg Capsule 250 mcg PO Q12H Discharge Orders: Discharge ED (Routine); Ordered 04/25/25 Ordered By: Chon Quintanilla Referrals: Ryan Escobar MD [Primary Care Provider, Family Practice] - 4-7 days Patient Instructions: Acute Low Back Pain (ED), Opioid Safety, Pain Management, Patient Portal & Tita Instructions Activity Restrictions/Additional Instructions: Medication as directed. Gentle stretching can help. Ice and heat may help. Medication as directed. Call your doctor tomorrow for follow-up appointment. Further treatment may be needed. Print Language: Qatari Coding Level of Care Code ED Choir Director for July Issa
[2025-04-25] MEDS: oxyCODONE-APAP 5-325 mg Tablet 1 TAB PO (18:58)
[2025-04-25 18:59] VITALS: BP 152/79; PULSE 67; RESP 18; O2SAT 100
[2025-04-25 20:38] VITALS: BP 140/77; PULSE 63; O2SAT 99
== END 2025-04-25 20:39 | disposition home or self-care (01) ==
PROVIDERS: Emergency Provider Emergency Medicine; PCP Family Medicine Geriatric Medicine
DX: M47.816 Spondylosis without myelopathy or radiculopathy, lumbar region (principal); Z79.82 Long term (current) use of aspirin; Z79.01 Long term (current) use of anticoagulants; Z87.891 Personal history of nicotine dependence; I11.0 Hypertensive heart disease with heart failure; I50.9 Heart failure, unspecified
CPT/HCPCS: 72131; 72192; 99284; J9999